=== PATIENT | male | born 1965 | race Caucasian/White ===

== ENCOUNTER 2022-07-18 12:31 | Outpatient (REF) | payer OTHER, SELFPAY ==
--- NOTE | ~2022-07-18 | US_ITS ---
EXAMINATION: US SOFT TISSUE NECK CLINICAL INFORMATION: Posterior neck lump. COMPARISON: None TECHNIQUE: Ultrasound of the right cervical soft tissues is performed with high- frequency crow-scale imaging and color Doppler. FINDINGS: The cutaneous, subcutaneous, muscular and fascial planes are unremarkable. Within the posterior right cervical region, a 4.9 x 1.3 x 3.9 cm heterogeneously hypoechoic, circumscribed mass is seen. This shows no significant associated color Doppler flow. No fluid collection is seen. There is no lymphadenopathy. US/US soft tiss head and/or neck IMPRESSION: A 4.9 cm in maximal diameter mass is seen in the posterior right cervical subcutaneous layer. This has an ultrasound appearance suggesting a possible hematoma; the exact etiology is indeterminate. If of continued clinical concern, consider MRI evaluation.
== END 2022-07-18 12:32 | disposition home or self-care (01) ==
LOC: HO.US 12:31
PROVIDERS: PCP Nurse Practitioner Family; Visit Provider Nurse Practitioner Family
DX: R22.1 Localized swelling, mass and lump, neck (principal)
CPT/HCPCS: 76536

== ENCOUNTER 2022-07-25 07:18 | Outpatient (REF) | payer OTHER, SELFPAY ==
[2022-07-25 11:37] LABS: Hematocrit 46.8 % (42.0-52.0); Hemoglobin 15.3 g/dl (14.0-18.0); Mean Corpuscular HGB Conc 32.7 g/dl (31.0-36.0); Mean Corpuscular Hemoglobin 29.4 pg (27.0-33.0); Mean Platelet Volume 10.8 fL (9.4-12.4); Platelet Count 191 X10*3/uL (160-400); Red Cell Distribution Width 13.4 % (11.0-16.0); White Blood Count 6.1 X10*3/uL (4.8-10.8)
[2022-07-25 12:31] LABS: Alanine Aminotransferase 26 U/L (0-40); Albumin Level 3.8 g/dL (3.5-5.0); Alkaline Phosphatase 66 U/L (39-117); Anion Gap 11 (12-20); Aspartate Amino Transferase 18 U/L (5-37); Bilirubin Total 1.3 mg/dL (0.0-1.0); Blood Urea Nitrogen 17 mg/dL (9-16); Calcium 8.8 mg/dL (8.4-10.2); Carbon Dioxide 26 mmol/L (22-29); Chloride 104 mmol/L (96-108); Cholesterol 190 mg/dL; Estimated Glomerular Filt Rate > 60; Glucose Fasting 120 mg/dL (60-99); HDL Cholesterol 44 mg/dL; LDL Cholesterol Calculated 122 mg/dl; Potassium 4.2 mmol/L (3.3-5.1); Sodium 137 mmol/L (135-145); Total Protein 6.8 g/dL (6.5-8.0); Triglycerides 123 mg/dL
[2022-07-25 12:32] LABS: TSH reflex Free T4 0.55 uIU/mL (0.32-4.0); Vitamin D 25-OH Total 14.2 ng/mL (>30)
== END 2022-07-25 07:19 | disposition home or self-care (01) ==
LOC: HO.WFDLDS 07:18
PROVIDERS: Visit Provider Nurse Practitioner Family
DX: Z00.00 Encounter for general adult medical examination without abnormal findings (principal); R22.1 Localized swelling, mass and lump, neck; Z12.5 Encounter for screening for malignant neoplasm of prostate; E55.9 Vitamin D deficiency, unspecified
CPT/HCPCS: 36415; 80053; 80061; 82306; 84153; 84443; 85027

== ENCOUNTER 2022-09-24 12:07 | Outpatient (REF) | payer OTHER, SELFPAY ==
[2022-09-24 14:22] LABS: Blood Urea Nitrogen 17 mg/dL (9-16); Estimated Glomerular Filt Rate > 60
== END 2022-09-24 12:08 | disposition home or self-care (01) ==
LOC: HO.WFDLDS 12:07
PROVIDERS: Visit Provider Nurse Practitioner Family
DX: R22.1 Localized swelling, mass and lump, neck (principal)
CPT/HCPCS: 36415; 82565; 84520

== ENCOUNTER 2022-09-26 09:18 | Outpatient (REF) | payer OTHER, SELFPAY ==
--- NOTE | ~2022-09-26 | CT_ITS ---
EXAMINATION: CT SOFT TISSUE NECK WITH CONTRAST CLINICAL INFORMATION: Right posterior neck mass COMPARISON: Soft tissue ultrasound 07/18/2019. TECHNIQUE: Following the administration of 100 mL of Omnipaque 300 intravenous contrast, helical imaging was performed in the axial plane with generation of coronal and sagittal reformatted images. This CT examination was performed using dose optimization techniques as appropriate, variously including the following: *Automated exposure control. *Adjustment of mA and/or kV according to patient size (this includes techniques or standardized protocols for targeted exams where dose is matched to indication/reason for exam; i.e. extremities or head). *Use of iterative reconstruction technique. DLP: 437 mGy-cm. FINDINGS: There is a subcutaneous lipoma in the right posterior neck centered at the level of C3 measuring 3.8 x 2.2 x 4.2 cm Nasopharynx/skull base: The fat planes of the skull base and soft tissues of the nasopharynx are unremarkable. Mild maxillary sinus mucosal thickening. The mastoids are clear. The temporomandibular joints are normal. Suprahyoid neck: The oropharynx, oral cavity, and bilateral salivary gland tissues are unremarkable. Small multiloculated gas collection along the right posterolateral trachea at the level of the thoracic inlet likely represents a tracheal diverticulum. Infrahyoid neck: The hypopharynx and larynx are unremarkable. No aerodigestive tract mass. Thyroid: The thyroid gland is normal. Lymph nodes: There is no cervical chain lymphadenopathy. Lung apices: The partially visualized lung apices are clear. Vascular structures: No hemodynamically significant stenosis, dissection, or occlusion. Osseous structures: The osseous structures are intact without suspicious focal lesion. Degenerative disc disease and trace retrolisthesis at C6-C7. Other: The imaged portions of the brain parenchyma are unremarkable. CT/CT soft tissue neck w IV con IMPRESSION: Right upper posterior neck subcutaneous lipoma measuring up to 4.2 cm
[2022-09-26] MEDS: iohexoL 350 MG/ML 100 ML INFUS..BTL IV (10:22)
== END 2022-09-26 09:19 | disposition home or self-care (01) ==
LOC: HO.CT 09:18
PROVIDERS: Visit Provider Nurse Practitioner Family
DX: R22.1 Localized swelling, mass and lump, neck (principal)
CPT/HCPCS: 70491; Q9967

== ENCOUNTER 2022-12-05 12:17 | Outpatient (AMB) | payer OTHER, SELFPAY ==
[2022-12-05 12:22] VITALS: BP 128/70; PULSE 79; RESP 12; TEMP 36.3; O2SAT 97; BMI 32.7
--- NOTE | 2022-12-05 12:22 | MHC.PC.OV ---
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 Patient states pain is in his right hip and hamstring is hurting. Patient is asking for you to refill his naproxen and vitamin D3. Patient states that he is having an operation on his neck due to a lump, and is suppose to go to [facility] to get more information. Patient would also like a new cream for his psoriasis. 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: No Accompanied by: Self / Same As Patient Allergies Seasonal Allergies Allergy (Mild, Verified 12/05/22 12:38) Itchy Eyes Medication List - Last Reconciled 12/05/22 by Neri Rehman CNP cholecalciferol (vitamin D3) 25 mcg PO DAILY 90 days lisinopril-hydrochlorothiazide 20-12.5 mg 1 tab PO BID 30 days naproxen 500 mg PO BID PRN 30 days Tobacco use date assessed: 06/27/22 Dental Screening Dental Screen Date: 12/05/22 Did you have a dental visit in the last 12 months?: No Did you have a dental problem in the last 6 months where you did not have access to dental care?: No Was dental information given to patient?: Patient has dentist HPI HPI Comments History of Present Illness Details 57-year-old male presents for hypertension follow-up He notes he has been taking his lisinopril-hydrochlorothiazide as prescribed He reports persistent right sciatic pain which waxes and wanes. He notes that the pain radiates to his right hamstring. His symptoms have been ongoing for the past 3-4 months. He describes the pain as achy. He states that the pain is mild today. No tingling or numbness. No fall injury or trauma. 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 He reports increased pain while sitting on a seat on the bus with less cushion. He notes that his right knee pain completely resolved with naproxen. Requests a refill of naproxen for his sciatic pain. 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 Christian Crawford, Stormy Ricci, Amaury Sanchez and colleagues, with an educational jennifer from [employer]. Review of Systems Const Details: Const Denies chills, Denies fatigue, Denies fever(s), Denies headache(s) and Denies weakness ENT Denies change in vision, Denies dizziness, Denies headache(s), Denies hearing loss, Denies nasal congestion, Denies sinus pain, Denies sinus pressure and Denies sore throat Resp Denies cough, Denies dyspnea, Denies wheezing and Denies other (shortness of breath) Cardio Denies chest pain, Denies lightheadedness, Denies dyspnea and Denies other (palpitations) Neuro Denies dizziness, Denies headache(s), Denies numbness, Denies tingling and Denies weakness Musc Reports as per HPI Psych Denies anxiety, Denies depression, Denies memory?loss Endo Denies fatigue Aller/Immun Denies wheezing Physical exam (Primary Care) Vital Signs: Last Vital Signs Temp 97.4 F 12/05/22 12:22 Pulse 79 12/05/22 12:22 Resp 12 12/05/22 12:22 BP 128/70 12/05/22 12:22 Pulse Ox 97 12/05/22 12:22 Oxygen Delivery Method Room Air 12/05/22 12:22 BMI result Body Mass Index 32.7 Tobacco/Smoking Status: Tobacco use Status Tobacco use date assessed 06/27/22 12/05/22 12:28 Patient Tobacco Use Status Never used Tobacco 12/05/22 12:28 e-Cigarette/Vaping Use Never Used 12/05/22 12:28 Thrive Assessment: Date of Thrive Assessment Date Thrive assessed 06/27/22 12/05/22 12:28 Const Other: Const General: well developed; No acute distress Nutritional Appearance: well nourished Orientation/consciousness: patient oriented x3 HEENT Head: Yes normocephalic and Yes atraumatic Eyes General: appearance normal, both eyes and all related structures Pupils: Equal, round and reactive pupils present EOM: EOMs intact bilaterally Resp Effort & Inspection: normal respiratory effort Auscultation: clear to auscultation bilaterally Cardio Rate: regular rate Rhythm: regular rhythm Heart sounds: S1 normal heart sound present, S2 normal heart sound present, no gallops, no murmurs and no rubs Bruits: no abdominal aortic bruits and no carotid bruits Back/Spine/Pelvis Back: no CVA tenderness Cervical Spine: cervical ROM normal and No Cervical spine tenderness Thoracic/Lumbar Spine: thoraco-lumbar ROM normal, No pain with thoraco-lumbar ROM, No thoracic spinal tenderness and No lumbar spinal tenderness Extrem General: Yes normal to inspection, No edema and No calf tenderness Negative straight leg raise bilaterally Neuro General: patient oriented x3 and gait normal, no focal neuro deficit Cranial nerves: Yes Equal, round and reactive pupils present Psych Affect: normal affect Assessment and Plan Assessment & Plan (1) Essential hypertension: Code(s): I10 - Essential (primary) hypertension Plan: Blood pressure is controlled, 128/70, within goal of less than 140/90 Continue to take lisinopril-hydrochlorothiazide as prescribed Low-sodium diet encouraged Routine exercise encouraged Encouraged to get pending fasting glucose and vitamin D blood work done before next visit Follow-up in 1 month for complete physical exam Return sooner with symptoms or concerns Verbalized understanding and agreed with treatment plan. (2) Sacroiliac joint pain: Code(s): M53.3 - Sacrococcygeal disorders, not elsewhere classified Plan: He reports persistent right sciatic pain which waxes and wanes. He notes that the pain radiates to his right hamstring. His symptoms have been ongoing for the past 3-4 months. He describes the pain as achy. He states that the pain is mild today. No tingling or numbness. No fall injury or trauma. 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 He reports increased pain while sitting on a seat on the bus with less cushion. Likely inflammation or arthritis Naproxen refilled. Take as prescribed Warm/cold compresses encouraged May purchase a cushion for he seats on the bus Return with worsening or new symptoms Verbalized understanding and agreed with treatment plan. Medications: Refilled naproxen 500 mg PO BID 30 days PRN 60 tabs 1RF pain Coding Level of Care Code Est Pt Level 3 (92713) Diagnoses Essential hypertension I10 Sacroiliac joint pain M53.3 Time Spent (min) 25
== END 2022-12-05 13:00 | disposition home or self-care (01) ==
PROVIDERS: PCP Nurse Practitioner Family; Visit Provider Nurse Practitioner Family
DX: I10 Essential (primary) hypertension (principal); M53.3 Sacrococcygeal disorders, not elsewhere classified
CPT/HCPCS: 99213

== ENCOUNTER 2022-12-09 09:09 | Outpatient (AMB) | payer OTHER, SELFPAY ==
[2022-12-09 09:11] VITALS: BP 146/85; PULSE 79; BMI 33.1
--- NOTE | 2022-12-09 09:11 | A.OFFVIS_ITS ---
Intake Vital Signs 12/09/22 09:11 Height 6 ft 2 in Weight 258 lb BMI 33.1 BP 146/85 H Blood Pressure Location Rt brachial Position Sitting Pulse 79 Intake Visit Reasons: Lipoma Intake Note: Patient referred for lipoma on post neck. Has been present for 10yrs. 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 He has had this many years time. It has markedly increased in size and become more symptomatic as of late. He wished to have it excised. He has no such lesions elsewhere. Chart was reviewed patient evaluated. 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 No cervical or periclavicular adenopathy. Chest Other: Chest breath sounds bilaterally, HS 1 in 2 GI Other: Abdomen corpulent, soft, benign Assessment & Plan Assessment & Plan (1) Lump on neck: Code(s): R22.1 - Localized swelling, mass and lump, neck Plan Risks, benefits, alternatives of posterior neck lipoma excision reviewed with the patient and included but not limited to bleeding, infection, recurrence, numbness, pain, scarring, wound dehiscence, and seroma and the patient wished to proceed. All questions were answered. Arrangements will be made for this. Coding Level of Care Code New Pt Level 4 (17821) Diagnoses Lump on neck R22.1
== END 2022-12-09 09:25 | disposition home or self-care (01) ==
PROVIDERS: PCP Nurse Practitioner Family; Visit Provider Surgery
DX: R22.1 Localized swelling, mass and lump, neck (principal)
CPT/HCPCS: 99204

== ENCOUNTER → 2022-12-09 09:09 | Outpatient (BNVA) | payer OTHER, SELFPAY | PROVIDERS: PCP Nurse Practitioner Family; Visit Provider Surgery ==

== ENCOUNTER 2023-01-02 07:18 | Day surgery (SDC) | payer OTHER, SELFPAY ==
[2022-12-30 14:28] VITALS: BMI 33.1
--- NOTE | 2023-01-01 09:29 | HO.ANESPROP2 ---
Documented by User: Deyanira Muro NP 01/01/23 09:31 HPI - Anesthesia Eval Consult details Narrative: 57yo M for Excision giant post neck Lipoma PMFSH Active Problems Active Problems: All Active Problems (Updated 12/05/22 @ 13:09 by Neri Rehman CNP) Laboratory tests ordered as part of a complete physical exam (CPE) (Acute) Lump on neck (Acute) Psoriasis (Acute) Essential hypertension (Acute) Encounter for screening colonoscopy (Acute) Vaccine counseling (Acute) Right knee pain (Acute) Vitamin D deficiency (Acute) Elevated fasting glucose (Acute) Sacroiliac joint pain (Acute) Past Medical History Medical History (Updated 01/02/23 @ 08:12 by Bekah Damon RN) No pertinent past medical history Sleep apnea Surgical History Surgical History (Updated 12/30/22 @ 14:27 by Jennifer Stevens RN) H/O right wrist surgery Social History Social History Housing: House Patient Tobacco Use Status: Never used Tobacco e-Cigarette/Vaping Use: Never Used Use of substances other than those prescribed or required for medical reasons: No Are you DNR?: No Advance Directives: No Advance Directives Information Provided: Yes service: No Current occupational status: employed 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) Cognitive needs: No Hearing needs: No Vision needs: No Meds Allergies Allergy/AdvReac Type Severity Reaction Status Date / Time Seasonal Allergies Allergy Mild Itchy Eyes Verified 12/09/22 09:16 Home Medications Medication Instructions Recorded Confirmed Last Taken Type triamcinolone acetonide 0.1 % appl topical BID 12/05/22 Unknown History topical cream Exam Exam Date and Time: January 01, 2023 0929 Height,Weight and Vital Signs: Height 6 ft 2 in Weight 117.027 kg Pertinent Lab Results Pertinent Lab Results: Laboratory Tests 07/25/22 07/25/22 09/24/22 07:25 07:25 11:40 WBC 6.1 Hgb 15.3 Hct 46.8 Plt Count 191 Sodium 137 Potassium 4.2 Chloride 104 Carbon Dioxide 26 BUN 17 H Creatinine 0.88 Assessment and Plan Assessment Anesthesia Assessment: Chart Reviewed Documented by User: Josue Wilson MD 01/02/23 10:07 [facility] Past Medical History Medical History (Updated 01/02/23 @ 08:12 by Bekah Damon, [place]ET[place]) No pertinent past medical history Sleep apnea Family History Family history of problems with anesthesia: No Surgical History Surgical History (Updated 12/30/22 @ 14:27 by Jennifer Stevens RN) H/O right wrist surgery History of Problems with Anesthesia: No Social History Social History Housing: House Patient Tobacco Use Status: Never used Tobacco e-Cigarette/Vaping Use: Never Used Use of substances other than those prescribed or required for medical reasons: No Are you DNR?: No Advance Directives: No Advance Directives Information Provided: Yes service: No Current occupational status: employed 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) Cognitive needs: No Hearing needs: No Vision needs: No Meds Allergies Allergy/AdvReac Type Severity Reaction Status Date / Time Seasonal Allergies Allergy Mild Itchy Eyes Verified 12/09/22 09:16 Home Medications Medication Instructions Recorded Confirmed Last Taken Type triamcinolone acetonide 0.1 % appl topical BID 12/05/22 Unknown History topical cream Exam Airway Mallampati Class: III TM Dist: >3cm Neck ROM: Full Assessment and Plan Assessment Anesthesia Assessment: Anesthesia Plan Discussed Final Anesthetic Review Family History of Problems with Anesthesia: No History of Problems with Anesthesia: No NPO: Yes ASA Class: III Final Preanesthetic Review: No Changes in Pt Med Stat, Meds/Allgs Chart Reviewed, Consent Obtained/Reviewed and Anes Risks/Benef Reviewed Procedure Risk: Low Anesthetic Plan Anesthetic Plan: GA Disposition: Standard PACU
--- NOTE | 2023-01-01 10:23 | MHC.SHP ---
Pre-Procedural Eval Section A Date of Service: 01/01/23 The patient is an INPATIENT: No Changes since office visit: No Cold of Flu in the past 2 weeks, No New Medical Problems, No Changes in Medication and No Patient answered all questions The History & Physical has been completed within 30 days and I have reviewed it.: Yes Section B Chief Complaint: Localized swelling, mass and lump, neck Allergies: Allergies Allergy/AdvReac Type Severity Reaction Status Date / Time Seasonal Allergies Allergy Mild Itchy Eyes Verified 12/09/22 09:16 Plan I have reviewed the history and physical and performed a pertinent physical examination on my patient. No changes have occurred unless specified. Time Spent With Patient Time: Total time managing care of this patient today ____ minutes.
[2023-01-02] VITALS (8 sets, daily range): BP systolic 134–172; BP diastolic 90–109; PULSE 61–75; RESP 16; TEMP 36.1; O2SAT 95–100
[2023-01-02] MEDS: Lactated Ringers 1,000 ML 100 ML IVCONT (08:40)
--- NOTE | 2023-01-02 10:49 | W.PM.OPN ---
Operative Note Operative Note Date of Service: 01/02/23 Narrative: Preoperative diagnosis: [] Large posterior neck lipoma Postop diagnosis: [] Same Procedure [] excision large right posterior neck lipoma Surgeon: [] Luis Manuel Bindery Machine Setter/Set Up Operator: [] Type of Anesthesia: [] General Indication for surgery: [] Final specimen measured approximately 4 x 4 cm consistent with a large lipoma deeply situated on the posterior neck muscle. Findings: [] Patient brought to the operating room, placed on operative table in supine position, after adequate level of general anesthesia was induced, patient placed in left lateral decubitus position. Posterior neck was prepped and draped in usual sterile fashion. Using a transverse incision over the mass in question, this carried down through skin, subcutaneous tissue, were large lipoma was encountered and circumferentially dissected out using Bovie. This was shaved off the underlying muscle and sent to pathology. Specimen size was as noted above. Wounds irrigated, and secured hemostasis. The wound Was closed in following manner; subcutaneous tissue was reapproximated using up to 3-0 Vicryl sutures. Skin was closed using interrupted inverted dermal 3-0 Vicryl sutures followed by Steri-Strips and sterile dressings. Wound was infiltrated 0.5% Marcaine/1% lidocaine at completion. Sponge, needle, and instrument counts were reported to be correct. Patient tolerated the procedure well and emerged anesthesia stable condition. EBL minimal
== END 2023-01-02 12:50 | disposition home or self-care (01) ==
PROVIDERS: PCP Nurse Practitioner Family; Visit Provider Surgery
PROC: (CPT 21552; principal; 2023-01-02 09:50)
DX: D17.0 Benign lipomatous neoplasm of skin and subcutaneous tissue of head, face and neck (principal); J30.2 Other seasonal allergic rhinitis; I10 Essential (primary) hypertension; R73.01 Impaired fasting glucose; Z79.899 Other long term (current) drug therapy
CPT/HCPCS: 21552; 88304; J0690; J1200; J2250; J2405; J2795; J3010

== ENCOUNTER → 2023-01-02 07:18 | Outpatient (BNV) | payer OTHER, SELFPAY | PROVIDERS: PCP Nurse Practitioner Family; Visit Provider Surgery | DX: D17.0 Benign lipomatous neoplasm of skin and subcutaneous tissue of head, face and neck (principal) | CPT/HCPCS: 21552 ==

== ENCOUNTER 2023-01-09 11:00 | Outpatient (AMB) | payer OTHER, SELFPAY ==
[2023-01-09 11:05] VITALS: BP 150/95; PULSE 93
--- NOTE | 2023-01-09 11:05 | A.OFFVIS_ITS ---
Intake Vital Signs 01/09/23 11:05 Weight 251 lb BP 150/95 H Blood Pressure Location Rt brachial Position Sitting Pulse 93 Intake Visit Reasons: S/P excision giant posterior neck lipoma Intake Note: Patient here s/p exc on post neck. Reports incision healing well. Denies pain, oozing or tenderness. C/o itch along scar but stated it may be related to psoriasis. Head Soft Sugar Operator Required: No Accompanied by: Self / Same As Patient Allergies Seasonal Allergies Allergy (Mild, Verified 01/09/23 11:07) Itchy Eyes HPI HPI Comments History of Present Illness Details Patient presents for follow-up. He has no wound issues or complaints. Pathology is benign. 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 Assessment & Plan Assessment & Plan (1) Lump on neck: Code(s): R22.1 - Localized swelling, mass and lump, neck Plan Patient has been given local instructions, and will follow-up p.r.n. Coding Level of Care Code Global (33176) Diagnoses Lump on neck R22.1
== END 2023-01-09 11:25 | disposition home or self-care (01) ==
PROVIDERS: PCP Nurse Practitioner Family; Visit Provider Surgery
DX: R22.1 Localized swelling, mass and lump, neck (principal)
CPT/HCPCS: 99024

== ENCOUNTER → 2023-01-09 11:00 | Outpatient (BNVA) | payer OTHER, SELFPAY | PROVIDERS: PCP Nurse Practitioner Family; Visit Provider Surgery ==

== ENCOUNTER 2023-05-06 10:39 | Outpatient (AMB) | payer OTHER, SELFPAY ==
--- NOTE | 2023-05-06 10:44 | MHC.PC.OV ---
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 [facility]/ [facility], [place] Quality Control Auditor Required: No Accompanied by: Self / Same As Patient Allergies Seasonal Allergies Allergy (Mild, Verified 05/06/23 10:56) Itchy Eyes Medication List - Last Reconciled 05/06/23 by Nba Moe PA-C cholecalciferol (vitamin D3) 25 mcg PO DAILY 90 days lisinopril-hydrochlorothiazide 20-12.5 mg 1 tab PO BID 30 days naproxen 500 mg PO BID PRN 30 days triamcinolone acetonide 0.1% appl topical BID Tobacco use date assessed: 06/27/22 Dental Screening Dental Screen Date: 05/06/23 Did you have a dental visit in the last 12 months?: No Did you have a dental problem in the last 6 months where you did not have access to dental care?: No Was dental information given to patient?: Yes HPI 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 Patient has a past medical history significant for hypertension, vitamin-D deficiency and occasional lower lumbar spine pain. 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 Recently had been treated for pneumonia with antibiotics. Will supply patient with pneumonia vaccine .. Hypertension: His blood pressure has been well controlled on current dose of lisinopril hydrochlorothiazide. .. Sciatica: He occasionally does have sciatica that radiates down his right lower extremity. 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 Does use naproxen which has been helpful in reducing his pain. He would like a stronger medication to use as needed for his pain. We did discuss the possibility of trying physical therapy though would like to hold off for now due to his busy work schedule. .. Obesity: He does understand his BMI is over 30 Vaccines: Up-to-date with COVID vaccine, considering flu vaccine, considering shingles vaccine, will consider tetanus at next visit. 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 1. Little interest or pleasure in doing things: not at all 2. Feeling down, depressed, or hopeless: not at all 3. Trouble falling or staying asleep, or sleeping too much: not at all 4. Feeling tired or having little energy: not at all 5. Poor appetite or overeating: not at all 6. Feeling bad about yourself - or that you are a failure or have let yourself or your family down: not at all 7. Trouble concentrating on things, such as reading the newspaper or watching television: not at all 8. Moving or speaking so slowly that other people could have noticed. Or the opposite - being so fidgety or restless that you have been moving around a lot more than usual: not at all 9. Thoughts that you would be better off or of hurting yourself in some way: not at all Total score: 0 Depression Screening Interpretation: Negative Depression Screening Done: Yes [id number] - PHQ-9 Billing: Yes Source: Developed by Drs. Christian Crawford, Stormy Ricci, Amaury Sanchez and colleagues, with an educational jennifer from [employer]. Thrive Questionnaire Date Thrive assessed: 05/06/23 I am a: Patient What is your living situation today?: I have a steady place to live Within the past 12 months, did the food you bought not last and you didn't have the money to get more?: Never true Within the past 12 months, did you worry whether your food would run out before you got money to buy more?: Never true Do you have trouble paying for medicines?: No Do you have trouble getting transportation to medical appointments?: No Do you have trouble paying your heating and electricity bill?: No Do you have trouble taking care of your child, family member or friend?: No Do you have trouble with day-to-day activities such as bathing, preparing meals, shopping, managing finances, etc.?: No Are you currently unemployed and looking for a job?: No Are you interested in more education?: No Please select the resources that you would like help with: None Currently or been in a relationship where the following occur: no concerns reported AUDIT C Alcohol Use Questionnaire (AUDIT-C) 1. How often do you have a drink containing alcohol?: Monthly or less 2. How many drinks containing alcohol do you have on a typical day when you are drinking?: 1 or 2 3. How often do you have six or more drinks on one occasion?: Never Total Score: 1 STEPHEN-7 AMB Questionnaire STEPHEN-7 Date STEPHEN - 7 assessed: 05/06/23 Feeling nervous, anxious, or on edge: 0 = Not at all Not being able to stop or control worryin = Not at all Worrying too much about different things: 0 = Not at all Trouble relaxin = Not at all Being so restless that it is hard to sit still: 0 = Not at all Becoming easily annoyed or irritable: 0 = Not at all Feeling afraid as if something awful might happen: 0 = Not at all Total STEPHEN-7 score (0-4 normal; 5-9 mild; 10-14 moderate; 15-21 severe): 0 Source: Developed by Drs. Christian Crawford, Stormy Ricci, Amaury Sanchez and colleagues, with an educational jennifer from [employer]. STEPHEN-7 Assessment Billing STEPHEN-7 Assessment Tool: STEPHEN-7 Assessment 04698 Review of Systems Const Denies headache(s) Eyes Denies loss of vision ENT Denies vertigo, Denies dizziness, Denies headache(s) and Denies sore throat Card Denies chest pain, Denies leg edema and Denies lightheadedness Resp Denies cough, Denies hemoptysis and Denies wheezing GI Denies abdominal pain, Denies melena, Denies constipation, Denies diarrhea and Denies vomiting Denies dysuria, Denies urinary frequency and Denies urinary urgency Musc Denies arthralgias, Denies joint swelling, Denies numbness and Denies tingling Neuro Denies Abnormal speech present, Denies behavioral changes, Denies vertigo, Denies dizziness, Denies headache(s), Denies loss of vision, Denies memory loss, Denies numbness and Denies tingling Psych Denies anxiety, Denies behavioral changes, Denies depression, Denies memory loss and Denies panic attacks Amor/Lymph Denies easy bleeding and Denies easy bruising Aller/Immun Denies wheezing Physical exam (Primary Care) Vital Signs: Last Vital Signs Pulse 82 05/06/23 10:46 BP 126/80 05/06/23 10:46 BMI result Body Mass Index 32.8 BMI Assessment/Plan discussion: High Tobacco/Smoking Status: Tobacco use Status Tobacco use date assessed 06/27/22 05/06/23 10:48 Patient Tobacco Use Status Never used Tobacco 05/06/23 10:48 e-Cigarette/Vaping Use Never Used 05/06/23 10:48 PHQ-9: PHQ-9 Score PHQ-9: Total score 0 05/06/23 11:19 Depression Screening Interpretation: Negative Thrive Assessment: Date of Thrive Assessment Date Thrive assessed 05/06/23 05/06/23 10:52 Currently or been in a relationship where the following occur: no concerns reported Const Other: OBESE General: healthy appearing, no acute distress, alert and awake Nutritional Appearance: well nourished Orientation/consciousness: oriented to person, oriented to place and oriented to time HENVT Ears: TM's normal bilaterally General nose exam: Normal nasal mucous membranes and turbinates present Eyes Conjunctivae: conjunctivae normal Sclerae: sclerae normal Pupils: Equal, round and reactive pupils present Neck Neck: Yes no lymphadenopathy and Yes no JVD Thyroid: Thyroid normal Carotids: no bruits Resp Effort & Inspection: normal respiratory effort and not tachypneic Auscultation: no crackles, no rales, no rhonchi and no wheezes Cardio Rate: regular rate Rhythm: regular rhythm Heart sounds: no murmurs and normal S1 and S2 GI Palpation (GI): Soft to palpation, nontender, no hepatomegaly and no splenomegaly Auscultation: normal bowel sounds Skin General skin exam: no rashes or lesions noted and dry skin Neuro General: oriented to person, oriented to place and oriented to time Cranial nerves: Yes Equal, round and reactive pupils present Speech: No Abnormal speech present Gait exam (Neuro): Normal gait present Motor exam (neuro): no tremor noted Extrem Right upper extremity: full ROM Left upper extremity: full ROM Right lower extremity: full ROM; no edema Left lower extremity: full ROM; no edema Psych Mental Status: mental status grossly normal Speech and movement: Normal speech and movement present Affect: normal affect Attitude: cooperative Thought process: Normal thought process present Office Procedures Flu Questionnaire Does the patient have a severe egg allergy?: No Does the patient have severe life threatening allergies?: No Does the patient have a fever or illness today?: No Has the patient ever had Guillain-Omega Syndrome?: No Has the patient ever had any past reaction to a flu shot?: No Immunizations flu vacc [id number] 6mos up(PF) 60 mcg(15 mcgx4)/0.5 mL IM syringe Performing Provider: Nba Moe PA-C Performing Location: [facility] Administered by: JOSE Travis on 05/06/23 11:20 Dose Route Admin Location Dispensed Lot Number Expiration Date [facility] Kitchen Mechanic 0.5 mL IM Right Deltoid 0.5 mL [id number] 11/23/23 55220-547-22 [employer] VIS Given Date VIS Provided VIS Publication Date 05/06/23 Single Vaccine 20 Eligibility Eligibility Date Funding Source Not VFC Eligible 05/06/23 Private pneumoc 20-brooks conj-dip cr(PF) 0.5 mL IM syringe Performing Provider: Nba Moe PA-C Performing Location: [facility] Administered by: JOSE Travis on 05/06/23 11:20 Dose Route Admin Location Dispensed Lot Number Expiration Date [place] Kitchen Mechanic 0.5 mL IM Left Deltoid 0.5 mL [id number] 11/24/23 9155-0912-80 [email or web address] VIS Given Date VIS Provided VIS Publication Date 05/06/23 Single Vaccine 21 Eligibility Eligibility Date Funding Source Not VFC Eligible 05/06/23 Private Assessment and Plan Assessment & Plan (1) Essential hypertension: Code(s): I10 - Essential (primary) hypertension Plan: Patient's blood pressure well controlled with current dose lisinopril hydrochlorothiazide. Goal blood pressures to remain below 140/90 (2) Obese: Code(s): E66.9 - Obesity, unspecified Qualifiers: Body mass index: BMI 32.0-32.9 Obesity classification: adult class 1 (BMI 30 - 34.9) Obesity type: due to excess calories Serious obesity comorbidity presence: without serious comorbidity Qualified Code(s): E66.09 - Other obesity due to excess calories; Z68.32 - Body mass index [BMI] 32.0-32.9, adult Plan: Patient does understand his BMI is over 30 will work on being more physically active and adapting to better eating habits to reduce his weight. (3) Psoriasis: Code(s): L40.9 - Psoriasis, unspecified Plan: Patient does have chronic psoriasis to which she uses moisturizers and topical steroids for. (4) Colon cancer screening: Code(s): Z12.11 - Encounter for screening for malignant neoplasm of colon Plan: Patient is in need of colonoscopy . Will refer to [facility] Orders: Orders Vitamin D 25-OH Total Today E55.9 - Vitamin D deficiency, unspecified Comprehensive [place]. Panel Fast Today I10 - Essential (primary) hypertension Prostate Specific Antigen Scr Today M53.3 - Sacrococcygeal disorders, not elsewhere classified, Z12.5 - Encounter for screening for malignant neoplasm of prostate Influenza [id number] Immunization Today Z23 - Encounter for immunization Microalbumin, Random (w Creat) Today I10 - Essential (primary) hypertension Hemoglobin A1c Today R73.01 - Impaired fasting glucose Pneumococcal 20 Immunization Today Z23 - Encounter for immunization Referrals Gastroenterology Referral Z12.11 - Encounter for screening for malignant neoplasm of colon Medications: New cyclobenzaprine 5 mg PO BEDTIME 15 days PRN 15 tabs 0RF muscle spasm M53.3 - Sacrococcygeal disorders, not elsewhere classified Changed From triamcinolone acetonide 0.1% topical BID L40.9 - Psoriasis, unspecified To triamcinolone acetonide 0.1% 1 appl topical BID 30 days 80 grams 3RF L40.9 - Psoriasis, unspecified Refilled cholecalciferol (vitamin D3) 25 mcg PO DAILY 90 days 90 tabs 4RF naproxen 500 mg PO BID 30 days PRN 60 tabs 1RF pain naproxen 500 mg PO BID 30 days PRN 60 tabs 1RF pain M53.3 - Sacrococcygeal disorders, not elsewhere classified lisinopril-hydrochlorothiazide 20-12.5 mg 1 tab PO BID 30 days 60 tabs 4RF Coding Level of Care Code Est Pt Level 4 (74207) Diagnoses Essential hypertension I10 Class 1 obesity due to excess calories without serious comorbidity with body mass index (BMI) of 32.0 to 32.9 in adult E66.09; Z68.32 Body mass index: BMI 32.0-32.9 Obesity classification: adult class 1 (BMI 30 - 34.9) Obesity type: due to excess calories Serious obesity comorbidity presence: without serious comorbidity Psoriasis L40.9 Colon cancer screening Z12.11 Additional Codes STEPHEN-7 Assessment Billing - STEPHEN-7 Assessment Tool: STEPHEN-7 Assessment [id number] ([id number])
[2023-05-06 10:46] VITALS: BP 126/80; PULSE 82; BMI 32.8
== END 2023-05-06 11:17 | disposition home or self-care (01) ==
PROVIDERS: PCP Nurse Practitioner Family; Visit Provider Physician Assistant
DX: I10 Essential (primary) hypertension (principal); E66.09 Other obesity due to excess calories; Z68.32 Body mass index [BMI] 32.0-32.9, adult; L40.9 Psoriasis, unspecified; Z12.11 Encounter for screening for malignant neoplasm of colon; Z23 Encounter for immunization
CPT/HCPCS: 90471; 90472; 90677; 90686; 99214

== ENCOUNTER 2023-07-26 10:37 | Outpatient (REF) | payer OTHER, SELFPAY ==
[2023-07-26 11:59] LABS: Estimated Average Glucose 154 mg/dL
[2023-07-26 12:01] LABS: Creatinine Urine 165.74 mg/dL; Microalbum/Creatinine Ratio Ur 3.6 ug/mg cr (<30)
[2023-07-26 12:10] LABS: Alanine Aminotransferase 28 U/L (0-40); Albumin Level 3.8 g/dL (3.5-5.0); Alkaline Phosphatase 65 U/L (39-117); Anion Gap 11 (12-20); Aspartate Amino Transferase 20 U/L (5-37); Bilirubin Total 0.8 mg/dL (0.0-1.0); Blood Urea Nitrogen 18 mg/dL (9-16); Calcium 9.3 mg/dL (8.4-10.2); Carbon Dioxide 28 mmol/L (22-29); Chloride 105 mmol/L (96-108); Estimated Glomerular Filt Rate > 60; Glucose Fasting 134 mg/dL (60-99); Potassium 4.4 mmol/L (3.3-5.1); Sodium 140 mmol/L (135-145); Total Protein 7.1 g/dL (6.5-8.0)
[2023-07-26 12:21] LABS: Vitamin D 25-OH Total 30.6 ng/mL (>30)
== END 2023-07-26 10:38 | disposition home or self-care (01) ==
LOC: HO.LAB 10:37
PROVIDERS: PCP Physician Assistant; Visit Provider Physician Assistant
DX: Z12.5 Encounter for screening for malignant neoplasm of prostate (principal); E55.9 Vitamin D deficiency, unspecified; I10 Essential (primary) hypertension; M53.3 Sacrococcygeal disorders, not elsewhere classified; R73.01 Impaired fasting glucose
CPT/HCPCS: 36415; 80053; 82043; 82306; 82570; 83036; 84153

== ENCOUNTER 2023-07-29 08:57 | Outpatient (AMB) | payer OTHER, SELFPAY ==
[2023-07-29 09:03] VITALS: BP 122/80; PULSE 85; O2SAT 98; BMI 33.6
--- NOTE | 2023-07-29 09:03 | A.OFFPC_ITS ---
Vital Signs 07/29/23 09:03 Height 6 ft 2 in Weight 262 lb BMI 33.6 BP 122/80 Blood Pressure Location Lt brachial Position Sitting Pulse 85 Pulse Source Pulse Oximeter Pulse Oximetry (%) 98 Oxygen Delivery Method Room Air Intake Visit Reasons: pe Manager Therapy Required: No Wire Walker: Not Required per policy Accompanied by: Self / Same As Patient Allergies Seasonal Allergies Allergy (Mild, Verified 07/29/23 09:10) Itchy Eyes Medication List - Last Reconciled 07/29/23 by Nba Moe PA-C cholecalciferol (vitamin D3) 25 mcg PO DAILY 90 days cyclobenzaprine 5 mg PO BEDTIME PRN 15 days lisinopril-hydrochlorothiazide 20-12.5 mg 1 tab PO BID 30 days naproxen 500 mg PO BID PRN 30 days triamcinolone acetonide 0.1% 1 appl topical BID 30 days Tobacco use date assessed: 07/29/23 Dental Screening Dental Screen Date: 07/29/23 Did you have a dental visit in the last 12 months?: No Did you have a dental problem in the last 6 months where you did not have access to dental care?: No Was dental information given to patient?: Patient has dentist HPI pe HPI Details Patient is a 57-year-old male here today for annual physical. Patient has a past medical history significant for hypertension, vitamin-D deficiency and occasional lower lumbar spine pain. 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 .. New onset type 2 diabetes: Most recent A1c is 7.0. He does admit to dietary indiscretion over the winter. Has gained a few lb since last office visit. PLAN: Offered anti-hyperglycemic medication though he declines at this time. Will work extensively on diabetic diet and being more physically active to control his type 2 diabetes. .. .. Hypertension: His blood pressure has been well controlled on current dose of lisinopril hydrochlorothiazide. .. Sciatica: He occasionally does have sciatica that radiates down his right lower extremity. 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 Does use naproxen which has been helpful in reducing his pain. He would like a stronger medication to use as needed for his pain. .. Obesity: He does understand his BMI is over 30, unfortunately gained weight since last office visits Vaccines: Up-to-date with COVID vaccine, considering flu vaccine, considering shingles vaccine, needs tetanus. Colon cancer screening: Has upcoming appt with GI Laboratory Tests 07/25/22 07/26/23 07:25 10:46 Creatinine 0.98 Fasting Glucose 134 H Hemoglobin A1c % 7.0 H LDL Cholesterol, C alc 122 PSA Screen 1.00 25-OH Vitamin D To trish 30.6 L PFSH Medical History (Updated 07/29/23 @ 09:34 by Nba Moe PA-C) Sleep apnea No pertinent past medical history Surgical History (Updated 07/29/23 @ 09:34 by Nba Moe PA-C) Lump on neck H/O right wrist surgery Social History (Updated 07/29/23 @ 09:16 by Nba Moe PA-C) Housing: House Alcohol intake: current Alcohol intake frequency: holidays/special occasions only Alcohol type: wine Patient Tobacco Use Status: Never used Tobacco e-Cigarette/Vaping Use: Never Used service: No Current occupational status: employed 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 1. Little interest or pleasure in doing things: not at all 2. Feeling down, depressed, or hopeless: not at all 3. Trouble falling or staying asleep, or sleeping too much: not at all 4. Feeling tired or having little energy: not at all 5. Poor appetite or overeating: not at all 6. Feeling bad about yourself - or that you are a failure or have let yourself or your family down: not at all 7. Trouble concentrating on things, such as reading the newspaper or watching television: not at all 8. Moving or speaking so slowly that other people could have noticed. Or the opposite - being so fidgety or restless that you have been moving around a lot more than usual: not at all 9. Thoughts that you would be better off or of hurting yourself in some way: not at all Total score: 0 Depression Screening Interpretation: Negative Depression Screening Done: Yes 32361 - PHQ-9 Billing: Yes Source: Developed by Drs. Christian LStormy Landrum Kurt Kroenke and colleagues, with an educational jennifer from [employer]. Thrive Questionnaire Date Thrive assessed: 07/29/23 I am a: Patient What is your living situation today?: I have a steady place to live Within the past 12 months, did the food you bought not last and you didn't have the money to get more?: Never true Within the past 12 months, did you worry whether your food would run out before you got money to buy more?: Never true Do you have trouble paying for medicines?: No Do you have trouble getting transportation to medical appointments?: No Do you have trouble paying your heating and electricity bill?: No Do you have trouble taking care of your child, family member or friend?: No Do you have trouble with day-to-day activities such as bathing, preparing meals, shopping, managing finances, etc.?: No Are you currently unemployed and looking for a job?: No Are you interested in more education?: No Please select the resources that you would like help with: None THRIVE Score: 0 AUDIT C Alcohol Use Questionnaire (AUDIT-C) 1. How often do you have a drink containing alcohol?: Monthly or less 2. How many drinks containing alcohol do you have on a typical day when you are drinking?: 1 or 2 3. How often do you have six or more drinks on one occasion?: Never Total Score: 1 STEPHEN-7 AMB Questionnaire STEPHEN-7 Date STEPHEN - 7 assessed: 07/29/23 Feeling nervous, anxious, or on edge: 0 = Not at all Not being able to stop or control worryin = Not at all Worrying too much about different things: 0 = Not at all Trouble relaxin = Not at all Being so restless that it is hard to sit still: 0 = Not at all Becoming easily annoyed or irritable: 0 = Not at all Feeling afraid as if something awful might happen: 0 = Not at all Total STEPHEN-7 score (0-4 normal; 5-9 mild; 10-14 moderate; 15-21 severe): 0 Source: Developed by Stormy Gilbert Kurt Kroenke and colleagues, with an educational jennifer from [employer]. STEPHEN-7 Assessment Billing STEPHEN-7 Assessment Tool: STEPHEN-7 Assessment 49379 Review of Systems Const Denies body aches, Denies chills, Denies excessive sweating, Denies fatigue, Denies fever(s) and Denies headache(s) Eyes Denies blurry vision ENT Denies dysphagia, Denies vertigo, Denies dizziness, Denies headache(s), Denies hearing loss and Denies tinnitus Card Denies chest pain, Denies chest pain with activity, Denies syncope, Denies irregular heart rhythm and Denies dyspnea Resp Denies chest congestion, Denies cough, Denies hemoptysis, Denies dyspnea and Denies wheezing GI Denies abdominal pain, Denies melena, Denies hematochezia, Denies coffee ground emesis, Denies dysphagia, Denies diarrhea, Denies nausea and Denies vomiting Denies difficulty urinating, Denies dysuria, Denies urinary frequency, Denies urinary hesitancy and Denies urinary urgency Musc Denies arthralgias, Denies limited range of motion, Denies muscle cramps and Denies muscle weakness Skin/Breast Denies rash and Denies skin ulcer Neuro Denies Abnormal speech present, Denies confusion, Denies vertigo, Denies dizziness, Denies syncope, Denies headache(s), Denies memory loss and Denies seizure-like activity Psych Denies anxiety, Denies confusion, Denies depression, Denies memory loss, Denies panic attacks and Denies paranoia Endo Denies excessive sweating, Denies fatigue, Denies flushing, Denies polydipsia and Denies polyuria Aller/Immun Denies wheezing Physical exam (Primary Care) Vital Signs: Last Vital Signs Pulse 85 07/29/23 09:03 BP 122/80 07/29/23 09:03 Pulse Ox 98 07/29/23 09:03 Oxygen Delivery Method Room Air 07/29/23 09:03 BMI result Body Mass Index 33.6 BMI Assessment/Plan discussion: High Tobacco/Smoking Status: Tobacco use Status Tobacco use date assessed 07/29/23 07/29/23 09:04 Patient Tobacco Use Status Never used Tobacco 07/29/23 09:16 e-Cigarette/Vaping Use Never Used 07/29/23 09:16 PHQ-9: PHQ-9 Score PHQ-9: Total score 0 07/29/23 09:13 Depression Screening Interpretation: Negative Thrive Assessment: Date of Thrive Assessment Date Thrive assessed 07/29/23 07/29/23 09:04 Const Other: Obese General: cooperative, comfortable, no acute distress, alert and awake; No confusion Orientation/consciousness: oriented to person, oriented to place, patient oriented x3 and No confusion HENMT Head: Yes normocephalic Ears: external ears normal and TM's normal bilaterally Face and sinus: No sinus tenderness Mouth: Normal oral and palatal mucosa present and tongue normal Teeth and gingiva: dentition normal and gingiva normal Throat: Yes posterior oropharynx normal, Yes tonsils normal and Yes uvula midline Eyes Conjunctivae: conjunctivae normal Sclerae: sclerae normal Pupils: Equal, round and reactive pupils present EOM: EOMs intact bilaterally Direct Ophthalmoscopy: No no photophobia Neck Neck: Yes no lymphadenopathy, No tender and Yes no JVD Thyroid: Thyroid normal Carotids: no bruits Chest Chest palpation & inspection: no tenderness Resp Effort & Inspection: normal respiratory effort, no audible wheezes, not labored and no stridor Auscultation: no crackles, no rales, no rhonchi and no wheezes Cardio Jugular venous distension: no JVD Rate: regular rate, not bradycardic and not tachycardic Rhythm: regular rhythm Bruits: no carotid bruits Peripheral pulses: Peripheral pulses 2+ throughout GI Inspection: Yes normal to inspection, No abdominal wall ecchymosis and No visible herniation Palpation (GI): Soft to palpation, nontender, no guarding, not rigid and No hepatosplenomegaly present Auscultation: normoactive bowel sounds General: Yes no CVA tenderness Back/Spine/Pelvis Back: no CVA tenderness and No back tenderness Cervical Spine: cervical ROM normal Thoracic/Lumbar Spine: thoracic and lumbar spine normal to inspection, straight leg raise negative bilaterally, No thoraco-lumbar ROM limited and No lumbar spi nal tenderness Skin Lesions: no lesions Rashes: no rashes Wounds: no wounds Neuro General: oriented to person, oriented to place, patient oriented x3, CN's II-XI intact bilaterally and No confusion Cranial nerves: Yes Equal, round and reactive pupils present and Yes Normal accommodation reflex present Cognition (Neuro): normal cognition Speech: No Abnormal speech present Gait exam (Neuro): Normal gait present Motor exam (neuro): 5/5 motor strength present throughout Extrem Right upper extremity: full ROM; no cyanosis Left upper extremity: full ROM; no cyanosis Right lower extremity: no edema Left lower extremity: no edema Psych Appearance: grossly normal Mental Status: mental status grossly normal Affect: normal affect Attitude: cooperative Thought process: Normal thought process present Immunizations Boostrix Tdap 2.5 Lf unit-8 mcg-5 Lf/0.5 mL intramuscular syringe Performing Provider: Nba Moe PA-C [facility] [place] Administered by: JOSE Travis on 07/29/23 09:30 Dose Route Admin Location Dispensed Lot Number Expiration Date NDC Floors Buffer 0.5 mL IM Left Deltoid 0.5 mL [id number] 09/18/25 [id number] abcdexperts VIS Given Date VIS Provided VIS Publication Date 07/29/23 Single Vaccine 20 Eligibility Eligibility Date Funding Source Not [facility] Eligible 07/29/23 Private Assessment and Plan Assessment & Plan (1) Annual physical exam: Code(s): Z00.00 - Encounter for general adult medical examination without abnormal findings (2) Essential hypertension: Code(s): I10 - Essential (primary) hypertension Plan: Patient's blood pressure well controlled with current dose lisinopril hydrochlorothiazide. Goal blood pressures to remain below 140/90 (3) Obese: Code(s): E66.9 - Obesity, unspecified Qualifiers: Obesity type: due to excess calories Obesity classification: adult class 1 (BMI 30 - 34.9) Serious obesity comorbidity presence: without serious comorbidity Body mass index: BMI 32.0-32.9 Qualified Code(s): E66.09 - Other obesity due to excess calories; Z68.32 - Body mass index [BMI] 32.0-32.9, adult Plan: Patient does understand his BMI is over 30 will work on being more physically active and adapting to better eating habits to reduce his weight. (4) Psoriasis: Code(s): L40.9 - Psoriasis, unspecified Plan: Patient does have chronic psoriasis to which she uses moisturizers and topical steroids for. (5) DMII (diabetes mellitus, type 2): Code(s): E11.9 - Type 2 diabetes mellitus without complications Qualifiers: Diabetes mellitus terminal make up operator insulin use: without terminal make up operator use Diabetes mellitus complication status: with hyperglycemia Qualified Code(s): E11.65 - Type 2 diabetes mellitus with hyperglycemia Plan: Patient has new onset type 2 diabetes. Most recent A1c is 7.0. He is apprehensive on starting medication would like to work extensively on his diabetic diet to get his A1c down. Will follow-up in 4 months and if A1c above 6.5 will consider starting metformin. (6) Erectile dysfunction: Code(s): N52.9 - Male erectile dysfunction, unspecified Qualifiers: Erectile dysfunction type: unspecified Qualified Code(s): N52.9 - Male erectile dysfunction, unspecified Plan: Having difficulty with 6 dry, he is interested in trying Cialis before sexual activity. Orders: Orders Comprehensive [place]. Panel Fast Today I10 - Essential (primary) hypertension TDaP Immunization Today I10 - Essential (primary) hypertension, Z23 - Encounter for immunization Lipid Panel Today E11.65 - Type 2 diabetes mellitus with hyperglycemia Vitamin D 25-OH Total Today E55.9 - Vitamin D deficiency, unspecified Medications: New tadalafil 20 mg PO DAILY 5 days PRN 5 tabs 0RF sexual activity N52.9 - Male erectile dysfunction, unspecified Refilled cyclobenzaprine 5 mg PO BEDTIME 15 days PRN 15 tabs 0RF muscle spasm M53.3 - Sacrococcygeal disorders, not elsewhere classified naproxen 500 mg PO BID 30 days PRN 60 tabs 3RF pain M53.3 - Sacrococcygeal disorders, not elsewhere classified Coding Level of Care Code Est Pt Prev Care 40-64y([id number]) Diagnoses Annual physical exam Z00.00 Essential hypertension I10 Class 1 obesity due to excess calories without serious comorbidity with body mass index (BMI) of 32.0 to 32.9 in adult E66.09; Z68.32 Obesity type: due to excess calories Obesity classification: adult class 1 (BMI 30 - 34.9) Serious obesity comorbidity presence: without serious comorbidity Body mass index: BMI 32.0-32.9 Psoriasis L40.9 Type 2 diabetes mellitus with hyperglycemia, without long-term current use of insulin E11.65 Diabetes mellitus terminal make up operator insulin use: without assisted use Diabetes mellitus complication status: with hyperglycemia Erectile dysfunction, unspecified erectile dysfunction type N52.9 Erectile dysfunction type: unspecified Additional Codes STEPHEN-7 Assessment Billing - STEPHEN-7 Assessment Tool: STEPHEN-7 Assessment [id number] ([id number])
== END 2023-07-29 09:32 | disposition home or self-care (01) ==
PROVIDERS: PCP Nurse Practitioner Family; Visit Provider Physician Assistant
DX: Z00.00 Encounter for general adult medical examination without abnormal findings (principal); E11.65 Type 2 diabetes mellitus with hyperglycemia; I10 Essential (primary) hypertension; Z23 Encounter for immunization; E66.09 Other obesity due to excess calories; Z68.32 Body mass index [BMI] 32.0-32.9, adult; L40.9 Psoriasis, unspecified; N52.9 Male erectile dysfunction, unspecified
CPT/HCPCS: 90471; 90715; 99396

== ENCOUNTER 2023-12-08 07:42 | Outpatient (REF) | payer OTHER, SELFPAY ==
[2023-12-08 08:41] LABS: Alanine Aminotransferase 29 U/L (0-40); Albumin Level 4.1 g/dL (3.5-5.0); Alkaline Phosphatase 62 U/L (39-117); Anion Gap 13 (12-20); Aspartate Amino Transferase 22 U/L (5-37); Bilirubin Total 0.9 mg/dL (0.0-1.0); Blood Urea Nitrogen 21 mg/dL (9-16); Calcium 9.3 mg/dL (8.4-10.2); Carbon Dioxide 27 mmol/L (22-29); Chloride 103 mmol/L (96-108); Cholesterol 211 mg/dL (<200); Estimated Glomerular Filt Rate > 60; Glucose Fasting 118 mg/dL (60-99); HDL Cholesterol 45 mg/dL (>40); LDL Cholesterol Calculated 146 mg/dL (<100); Potassium 3.9 mmol/L (3.3-5.1); Sodium 139 mmol/L (135-145); Total Protein 7.6 g/dL (6.5-8.0); Triglycerides 102 mg/dL (<150)
[2023-12-08 08:58] LABS: Vitamin D 25-OH Total 32.5 ng/mL (>30)
== END 2023-12-08 07:43 | disposition home or self-care (01) ==
LOC: HO.LAB 07:42
PROVIDERS: PCP Physician Assistant; Visit Provider Physician Assistant
DX: E11.65 Type 2 diabetes mellitus with hyperglycemia (principal); I10 Essential (primary) hypertension; E55.9 Vitamin D deficiency, unspecified
CPT/HCPCS: 36415; 80053; 80061; 82306

== ENCOUNTER 2023-12-09 09:34 | Outpatient (AMB) | payer OTHER, SELFPAY ==
--- NOTE | 2023-12-09 09:45 | A.OFFPC_ITS ---
Vital Signs 12/09/23 09:50 Height 6 ft 2 in Weight 256 lb 8 oz BMI 32.9 BP 126/86 Blood Pressure Location Lt brachial Position Sitting Pulse 82 Pulse Source Pulse Oximeter Pulse Oximetry (%) 96 Oxygen Delivery Method Room Air Intake Visit Reasons: f/u DMII Sitecore Developer Required: No Accompanied by: Self / Same As Patient Allergies Seasonal Allergies Allergy (Mild, Verified 12/09/23 10:03) Itchy Eyes Medication List - Last Reconciled 12/09/23 by Nba Moe PA-C cholecalciferol (vitamin D3) 25 mcg PO DAILY 90 days cyclobenzaprine 5 mg PO BEDTIME PRN 15 days lisinopril-hydrochlorothiazide 20-12.5 mg 1 tab PO BID 30 days naproxen 500 mg PO BID PRN 30 days tadalafil 20 mg PO DAILY PRN 5 days triamcinolone acetonide 0.1% 1 appl topical BID 30 days Tobacco use date assessed: 07/29/23 Dental Screening Dental Screen Date: 07/29/23 HPI f/u DMII HPI Details Patient is a 58-year-old male here today for annual physical. Patient has a past medical history significant for hypertension, vitamin-D deficiency and occasional lower lumbar spine pain. 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 .. Type 2 diabetes: Today's A1c is 6.3 from 7.0. Has been making dietary modifications.. . Has lost 10 lb since last office visi t PLAN: Continue to work on lifestyle and dietary modifications. .. .. Hypertension: His blood pressure has been well controlled on current dose of lisinopril hydrochlorothiazide. .. HLD: Most recent lipid panel showing borderline total cholesterol and LDL 140. Did discuss starting statin therapy though would like to hold off and work on lifestyle and dietary modifications. Again goal LDL to be below 100 .. 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 He does report significant pain relief with naproxen and p.r.n. use of cyclobenzaprine. .. 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 Christian Crawford, Stormy Ricci, Amaury Sanchez and colleagues, with an educational jennifer from [employer]. Review of Systems Const Denies headache(s) Eyes Denies loss of vision ENT Denies vertigo, Denies dizziness, Denies headache(s) and Denies sore throat Card Denies chest pain, Denies leg edema and Denies lightheadedness Resp Denies cough, Denies hemoptysis and Denies wheezing GI Denies abdominal pain, Denies melena, Denies constipation, Denies diarrhea and Denies vomiting Denies dysuria, Denies urinary frequency and Denies urinary urgency Musc Denies arthralgias, Denies joint swelling, Denies numbness and Denies tingling Neuro Denies Abnormal speech present, Denies behavioral changes, Denies vertigo, Denies dizziness, Denies headache(s), Denies loss of vision, Denies memory loss, Denies numbness and Denies tingling Psych Denies anxiety, Denies behavioral changes, Denies depression, Denies memory loss and Denies panic attacks Amor/Lymph Denies easy bleeding and Denies easy bruising Aller/Immun Denies wheezing Physical exam (Primary Care) Vital Signs: Last Vital Signs Pulse 82 12/09/23 09:50 BP 126/86 12/09/23 09:50 Pulse Ox 96 12/09/23 09:50 Oxygen Delivery Method Room Air 12/09/23 09:50 BMI result Body Mass Index 32.9 Tobacco/Smoking Status: Tobacco use Status Tobacco use date assessed 07/29/23 12/09/23 09:51 Patient Tobacco Use Status Never used Tobacco 12/09/23 09:51 e-Cigarette/Vaping Use Never Used 12/09/23 09:51 Thrive Assessment: Date of Thrive Assessment Date Thrive assessed 07/29/23 12/09/23 09:51 Const General: healthy appearing, no acute distress, alert and awake Nutritional Appearance: well nourished Orientation/consciousness: oriented to person, oriented to place and oriented to time HENMT Ears: TM's normal bilaterally General nose exam: Normal nasal mucous membranes and turbinates present Eyes Conjunctivae: conjunctivae normal Sclerae: sclerae normal Pupils: Equal, round and reactive pupils present Neck Neck: Yes no lymphadenopathy and Yes no JVD Thyroid: Thyroid normal Carotids: no bruits Resp Effort & Inspection: normal respiratory effort and not tachypneic Auscultation: no crackles, no rales, no rhonchi and no wheezes Cardio Rate: regular rate Rhythm: regular rhythm Heart sounds: no murmurs and normal S1 and S2 GI Palpation (GI): Soft to palpation, nontender, no hepatomegaly and no splenomegaly Auscultation: normal bowel sounds Skin General skin exam: no rashes or lesions noted and dry skin Neuro General: oriented to person, oriented to place and oriented to time Cranial nerves: Yes Equal, round and reactive pupils present Speech: No Abnormal speech present Gait exam (Neuro): Normal gait present Motor exam (neuro): no tremor noted Extrem Right upper extremity: full ROM Left upper extremity: full ROM Right lower extremity: full ROM; no edema Left lower extremity: full ROM; no edema Psych Mental Status: mental status grossly normal Speech and movement: Normal speech and movement present Affect: normal affect Attitude: cooperative Thought process: Normal thought process present Assessment and Plan Assessment & Plan (1) DMII (diabetes mellitus, type 2): Code(s): E11.9 - Type 2 diabetes mellitus without complications Qualifiers: Diabetes mellitus nursing home insulin use: without supervisor intermediates use Diabetes mellitus complication status: with hyperglycemia Qualified Code(s): E11.65 - Type 2 diabetes mellitus with hyperglycemia Plan: Patient's most recent A1c at 6.3 from 7.0. Has been making dietary modifications. Not interested in any diabetic medication at this time. Goal A1c is to remain below 7.0 (2) Essential hypertension: Code(s): I10 - Essential (primary) hypertension Plan: Patient's blood pressure well controlled with current dose lisinopril hydrochlorothiazide. Goal blood pressures to remain below 140/90 (3) Obese: Code(s): E66.9 - Obesity, unspecified Qualifiers: Obesity type: due to excess calories Obesity classification: adult class 1 (BMI 30 - 34.9) Serious obesity comorbidity presence: without serious comorbidity Body mass index: BMI 32.0-32.9 Qualified Code(s): E66.09 - Other obesity due to excess calories; Z68.32 - Body mass index [BMI] 32.0-32.9, adult Plan: Patient does understand his BMI is over 30 will work on being more physically active and adapting to better eating habits to reduce his weight. (4) Psoriasis: Code(s): L40.9 - Psoriasis, unspecified Plan: Patient does have chronic psoriasis to which she uses moisturizers and topical steroids for. (5) HLD (hyperlipidemia): Code(s): E78.5 - Hyperlipidemia, unspecified Qualifiers: Hyperlipidemia type: mixed hyperlipidemia Qualified Code(s): E78.2 - Mixed hyperlipidemia Plan: Most recent lipid panel showing borderline high total cholesterol and LDL of 140. Offered cholesterol medication though patient declines and would like to work on dietary modifications. Will recheck fasting lipid panel in 6 months and if LDL above 100 will consider low-dose statin therapy. Goal LDL to be below 100 Orders: Orders AMB Hemoglobin A1c Today E11.65 - Type 2 diabetes mellitus with hyperglycemia Lipid Panel 6 Months E78.5 - Hyperlipidemia, unspecified Prostate Specific Antigen Scr 6 Months E78.5 - Hyperlipidemia, unspecified, Z12.5 - Encounter for screening for malignant neoplasm of prostate Complete Blood Count no Diff 6 Months E78.5 - Hyperlipidemia, unspecified Comprehensive [place]. Panel Fast 6 Months E11.65 - Type 2 diabetes mellitus with hyperglycemia Referrals Cologuard Test Z12.11 - Encounter for screening for malignant neoplasm of colon Medications: New diclofenac sodium 1% (Arthritis Pain (diclofenac)) apply to single elbow, wrist or hand; for hand includes palm/fingers/back of hand 2 grams topical QID 30 days PRN 100 grams 0RF pain (scale score 4-6) M19.039 - Primary osteoarthritis, unspecified wrist, M53.3 - Sacrococcygeal disorders, not elsewhere classified Refilled lisinopril-hydrochlorothiazide 20-12.5 mg 1 tab PO BID 30 days 60 tabs 4RF cyclobenzaprine 5 mg PO BEDTIME 15 days PRN 15 tabs 0RF muscle spasm M53.3 - Sacrococcygeal disorders, not elsewhere classified cholecalciferol (vitamin D3) 25 mcg PO DAILY 90 days 90 tabs 4RF tadalafil 20 mg PO DAILY 5 days PRN 5 tabs 1RF sexual activity N52.9 - Male er ectile dysfunction, unspecified naproxen 500 mg PO BID 30 days PRN 60 tabs 3RF pain M53.3 - Sacrococcygeal disorders, not elsewhere classified triamcinolone acetonide 0.1% 1 appl topical BID 30 days 80 grams 6RF L40.9 - Psoriasis, unspecified Patient Instructions: Goal: A1c to remain below 7.0, LDL to be below 100 Barriers: Adherence to physical activity and healthy eating habits Coding Level of Care Code Est Pt Level 4 (88498) Diagnoses Type 2 diabetes mellitus with hyperglycemia, without long-term current use of insulin E11.65 Diabetes mellitus supervisor intermediates insulin use: without nursing home use Diabetes mellitus complication status: with hyperglycemia Essential hypertension I10 Class 1 obesity due to excess calories without serious comorbidity with body mass index (BMI) of 32.0 to 32.9 in adult E66.09; Z68.32 Obesity type: due to excess calories Obesity classification: adult class 1 (BMI 30 - 34.9) Serious obesity comorbidity presence: without serious comorbidity Body mass index: BMI 32.0-32.9 Psoriasis L40.9 Mixed hyperlipidemia E78.2 Hyperlipidemia type: mixed hyperlipidemia
[2023-12-09 09:50] VITALS: BP 126/86; PULSE 82; O2SAT 96; BMI 32.9
== END 2023-12-09 10:15 | disposition home or self-care (01) ==
PROVIDERS: PCP Physician Assistant; Visit Provider Physician Assistant
DX: E11.65 Type 2 diabetes mellitus with hyperglycemia (principal); I10 Essential (primary) hypertension; E66.09 Other obesity due to excess calories; Z68.32 Body mass index [BMI] 32.0-32.9, adult; L40.9 Psoriasis, unspecified; E78.2 Mixed hyperlipidemia
CPT/HCPCS: 99214

== ENCOUNTER 2024-06-10 10:53 | Outpatient (AMB) | payer OTHER, SELFPAY ==
--- NOTE | 2024-06-10 10:59 | A.OFFPC_ITS ---
Vital Signs 06/10/24 11:00 06/10/24 11:14 Height 6 ft 2 in Weight 263 lb 4 oz BMI 33.8 BP 164/110 H 138/100 H Blood Pressure Location Lt brachial Position Sitting Pulse 74 Pulse Source Pulse Oximeter Temp 97.1 F Temp Source Temporal Artery Scan Pulse Oximetry (%) 96 Oxygen Delivery Method Room Air Intake Visit Reasons: 6mth f/u Allergies Seasonal Allergies Allergy (Mild, Verified 06/10/24 11:06) Itchy Eyes Medication List - Last Reconciled 06/10/24 by Nba Moe PA-C cholecalciferol (vitamin D3) 25 mcg PO DAILY 90 days cyclobenzaprine 5 mg PO BEDTIME PRN 15 days diclofenac sodium 1% (Arthritis Pain (diclofenac)) 2 grams topical QID PRN 30 days lisinopril-hydrochlorothiazide 20-12.5 mg 1 tab PO BID 30 days naproxen 500 mg PO BID PRN 30 days tadalafil 20 mg PO DAILY PRN 5 days triamcinolone acetonide 0.1% 1 appl topical BID 30 days Tobacco use date assessed: 07/29/23 Dental Screening Dental Screen Date: 07/29/23 HPI 6mth f/u HPI Details Patient is a 58-year-old male here today for annual physical. Patient has a past medical history significant for hypertension, vitamin-D deficiency and occasional lower lumbar spine pain. 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 Concern--> Shoulder pain has been progressively worsening, especially at nig ht, affecting the right shoulder. There is a history of arthritis and neck/back pain, and the patient suspects potential rotator cuff involvement. Pain is partially mitigated by using topical cream and naproxen. Additionally, there was an episode of chest discomfort, felt as a sharp pain, occurring sporadically without recent recurrence. The patient expressed interest in investigating this if the symptoms return. .. Type 2 diabetes: Today's A1c is 6.4 from 7.0. Has been making dietary modifications.. . Which he attributes to holiday dietar y indiscretion PLAN: Continue to work on lifestyle and dietary modifications. .. Class 1 obesity: Have noted weight gain since last office visit. He admits to dietary indiscretion over the holidays. He will try to work on dietary and lifestyle modifications to help reduce his weight again. .. Hypertension: Blood pressure elevated today in office. He reports having a stressful day at work yesterday and only got 2 hours asleep. He continues with lisinopril hydrochlorothiazide which previously was helpful. PLAN: Again will work on lifestyle and dietary modifications to reduce his blood pressure .. HLD: Most recent lipid panel showing borderline total cholesterol and LDL 140. Did discuss starting statin therapy though would like to hold off and work on lifestyle and dietary modifications. Again goal LDL to be below 100 . 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 Christian Crawford, Stormy Ricci, Amaury Sanchez and colleagues, with an educational jennifer from [employer]. Review of Systems Const Denies headache(s) Eyes Denies loss of vision ENT Denies vertigo, Denies dizziness, Denies headache(s) and Denies sore throat Card Denies chest pain, Denies leg edema and Denies lightheadedness Resp Denies cough, Denies hemoptysis and Denies wheezing GI Denies abdominal pain, Denies melena, Denies constipation, Denies diarrhea and Denies vomiting Denies dysuria, Denies urinary frequency and Denies urinary urgency Musc Denies arthralgias, Denies joint swelling, Denies numbness and Denies tingling Neuro Denies Abnormal speech present, Denies behavioral changes, Denies vertigo, Denies dizziness, Denies headache(s), Denies loss of vision, Denies memory loss, Denies numbness and Denies tingling Psych Denies anxiety, Denies behavioral changes, Denies depression, Denies memory loss and Denies panic attacks Amor/Lymph Denies easy bleeding and Denies easy bruising Aller/Immun Denies wheezing Physical exam (Primary Care) Vital Signs: Last Vital Signs Temp 97.1 F 06/10/24 11:00 Pulse 74 06/10/24 11:00 BP 138/100 H 06/10/24 11:14 Pulse Ox 96 06/10/24 11:00 Oxygen Delivery Method Room Air 06/10/24 11:00 BMI result Body Mass Index 33.8 BMI Assessment/Plan discussion: High BMI High, discussed plan: lifestyle, weight reduction, dietary and physical activity Tobacco/Smoking Status: Tobacco use Status Tobacco use date assessed 07/29/23 06/10/24 11:05 Patient Tobacco Use Status Never used Tobacco 06/10/24 11:05 e-Cigarette/Vaping Use Never Used 06/10/24 11:05 Thrive Assessment: Date of Thrive Assessment Date Thrive assessed 07/29/23 06/10/24 11:05 Const General: healthy appearing, no acute distress, alert and awake Nutritional Appearance: well nourished Orientation/consciousness: oriented to person, oriented to place and oriented to time HENMT Ears: TM's normal bilaterally General nose exam: Normal nasal mucous membranes and turbinates present Eyes Conjunctivae: conjunctivae normal Sclerae: sclerae normal Pupils: Equal, round and reactive pupils present Neck Neck: Yes no lymphadenopathy and Yes no JVD Thyroid: Thyroid normal Carotids: no bruits Resp Effort & Inspection: normal respiratory effort and not tachypneic Auscultation: no crackles, no rales, no rhonchi and no wheezes Cardio Rate: regular rate Rhythm: regular rhythm Heart sounds: no murmurs and normal S1 and S2 GI Palpation (GI): Soft to palpation, nontender, no hepatomegaly and no splenomegaly Auscultation: normal bowel sounds Skin General skin exam: no rashes or lesions noted and dry skin Neuro General: oriented to person, oriented to place and oriented to time Cranial nerves: Yes Equal, round and reactive pupils present Speech: No Abnormal speech present Gait exam (Neuro): Normal gait present Motor exam (neuro): no tremor noted Extrem Right upper extremity: full ROM Left upper extremity: full ROM Right lower extremity: full ROM; no edema Left lower extremity: full ROM; no edema Psych Mental Status: mental status grossly normal Speech and movement: Normal speech and movement present Affect: normal affect Attitude: cooperative Thought process: Normal thought process present Office Procedures Flu Questionnaire Does the patient have a severe egg allergy?: No Does the patient have severe life threatening allergies?: No Does the patient have a fever or illness today?: No Has the patient ever had Guillain-[place] Syndrome?: No Has the patient ever had any past reaction to a flu shot?: No Results AMB Hemoglobin A1c AMB Hemoglobin A1c 6.4 % Last Edit by JOSE Travis on 06/10/24 11:19 Immunizations Fluarix Triv [id number] (PF) 45 mcg (15 mcg x 3)/0.5 mL IM syringe Performing Provider: Nba Moe PA-C [place] [facility] [facility] [place] [facility] Administered by: JOSE Travis on 06/10/24 11:06 Dose Route Admin Location Dispensed Lot Number Expiration Date NDC Parole Supervisor 0.5 mL IM Left Deltoid 0.5 mL [id number] 11/22/24 03500-058-89 [employer] VIS Given Date VIS Provided VIS Publication Date 06/10/24 Single Vaccine 20 Eligibility Eligibility Date Funding Source Not [facility] Eligible 06/10/24 Private Results Reviewed Results Reviewed: Laboratory Last Values Hgb A1c (Clinic) 6.4 % (4.0-6.0) H 06/10/24 10:58 Coding Level of Care Code Est Pt Level 4 (41531) Diagnoses Type 2 diabetes mellitus with hyperglycemia, without long-term current use of insulin E11.65 Diabetes mellitus complication status: with hyperglycemia Diabetes mellitus longterm insulin use: without termite control servicer use Chronic right shoulder pain M25.511; G89.29 Chronicity: chronic Essential hypertension I10 Mixed hyperlipidemia E78.2 Hyperlipidemia type: mixed hyperlipidemia Assessment & Plan Assessment & Plan (1) DMII (diabetes mellitus, type 2): Code(s): E11.9 - Type 2 diabetes mellitus without complications Category: Medical Qualifiers: Diabetes mellitus complication status: with hyperglycemia Diabetes mellitus termite control servicer insulin use: without longterm use Qualified Code(s): E11.65 - Type 2 diabetes mellitus with hyperglycemia Plan: Patient has unfortunately gained weight since last office visit. He reports dietary indiscretion over the holidays. Will recheck labs before upcoming appointment to evaluate fasting blood sugar and A1c. Today's A1c have improved to 6.4 from 7.0 Goal A1c is to be below 7 0 (2) Right shoulder pain: Code(s): M25.511 - Pain in right shoulder Category: Medical Qualifiers: Chronicity: chronic Qualified Code(s): M25.511 - Pain in right shoulder; G89.29 - Other chronic pain Plan: Garrett reports he has been having some right shoulder pain particularly when he lays down to sleep. Has been using analgesic cream which has been helpful. Will get an x-ray to evaluate for arthritis. Will consider orthopedic evaluation for possible cortisone injection (3) Essential hypertension: Code(s): I10 - Essential (primary) hypertension Category: Medical Plan: Patient's blood pressure elevated today in office. He reports his blood pressure is elevated due to a stressful work day yesterday and only getting a few hours asleep. Also has gained weight due to dietary indiscretion. He would like to work on dietary modifications to reduce his blood pressure. He continues on lisinopril hydrochlorothiazide (4) HLD (hyperlipidemia): Code(s): E78.5 - Hyperlipidemia, unspecified Category: Medical Qualifiers: Hyperlipidemia type: mixed hyperlipidemia Qualified Code(s): E78.2 - Mixed hyperlipidemia Plan: Most recent lipid panel showing borderline high cholesterol and LDL 144. He again was working on lifestyle and dietary modifications. 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
[2024-06-10 11:00] VITALS: BP 164/110; PULSE 74; TEMP 36.2; O2SAT 96; BMI 33.8
[2024-06-10 11:14] VITALS: BP 138/100
--- OUTSIDE RECORDS SUMMARY | 2024-06-10 13:29 | XMS_ITS ---
Author Name [facility] Organization Unknown History of Medication Use Medication Directions Dispensed Refills Start Date End Date Stat us timolol maleate (drops) 1 drop left eye twice a day 10/15/2023 completed ketorolac (drops) 1 % 10/15/2023 com pleted timolol maleate (drops) 1 drop left eye twice a day 10/02/2023 completed Pred Forte (drops,suspension) INSTILL 1 DROP INTO SURGICAL EYE 4 TIMES A DAY. 09/24/2023 completed moxifloxacin (drops) 0.5 % 09/24/2023 completed lisinopril (tablet) 20 mg 09/24/2023 c ompleted ketorolac (drops) 0.5 % 09/24/2023 com pleted benzonatate (TESSALON) 200 MG capsule Take 1 capsule (200 mg total) by mouth 3 (three) times a day as needed for cough. 06/06/2022 active lisinopril-hydrochlo rothiazide (PRINZIDE,ZESTORETIC ) 20-12.5 MG per tablet Take 1 tablet by mouth daily. 2 qd 06/06/2022 active Problems Problem Status Onset Date Problem Type Date of Resoluti on Source Acute cough [facility] for [facility] testing for COVID-19 virus [facility]
== END 2024-06-10 11:19 | disposition home or self-care (01) ==
PROVIDERS: PCP Physician Assistant; Visit Provider Physician Assistant
DX: E11.65 Type 2 diabetes mellitus with hyperglycemia (principal); M25.511 Pain in right shoulder; G89.29 Other chronic pain; I10 Essential (primary) hypertension; E78.2 Mixed hyperlipidemia; Z23 Encounter for immunization

== ENCOUNTER → 2024-06-10 10:53 | Outpatient (BNVA) | payer OTHER, SELFPAY | PROVIDERS: PCP Physician Assistant; Visit Provider Physician Assistant | DX: E11.65 Type 2 diabetes mellitus with hyperglycemia (principal); G89.29 Other chronic pain; M25.511 Pain in right shoulder; I10 Essential (primary) hypertension; E78.2 Mixed hyperlipidemia; Z23 Encounter for immunization | CPT/HCPCS: 83036; 90471; 90656 ==

== ENCOUNTER 2024-07-02 14:24 | Outpatient (REF) | payer OTHER, SELFPAY ==
--- OUTSIDE RECORDS SUMMARY | 2024-07-02 15:31 | XMS_ITS | Clinical Summary ---
Author Organization [facility] Address [address] [place] [id number] Care Team Providers Care Road Manager Name Role Phone Pcp, No Primary Care Provider Unavailabl e Allergies No known active allergies Medications Medication Sig Dispensed Refills Start Date End Date Status lisinopril-hydrochlo rothiazide (PRINZIDE,ZESTORETIC ) 20-12.5 MG per tablet Take 1 tablet by mouth daily. 2 qd Active benzonatate (TESSALON) 200 MG capsuleIndications:A cute cough Take 1 capsule (200 mg total) by mouth 3 (three) times a day as needed for cough. 30 capsule 05/27/2022 Active Social History Tobacco Use Types Packs/Day Years Used Date Smoking Tobacco: Never Assessed Sex and Gender Information Value Date Recorded Sex Assigned at Not on file Gender Identity Not on file Sexual Orientation Not on file Last Filed Vital Signs Vital Sign Reading Time Taken Comments Blood Pressure 182/121 05/27/2022 10:52 AM EST Pulse 83 05/27/2022 10:52 AM EST Temperature 36.1 ??C (97 ??F) 05/27/2022 10:52 AM EST Respiratory Rate - - Oxygen Saturation 98% 05/27/2022 10:52 AM EST Inhaled Oxygen Concentration - - Weight - - Height - - Body Mass Index - - Plan of Treatment Health Maintenance Due Date Last Done Comments Hepatitis C Virus Screening 1965 HIV Screening 12/04/1976 DTaP/Tdap/Td Vaccines (1 - Tdap) 12/04/1982 Colonoscopy 12/04/2008 Pneumococcal Vaccines 50+ (1 of 1 - PCV) 12/04/2013 Zoster (Shingles) Vaccine (1 of 2) 12/04/2013 Influenza Vaccine 12/25/2023 COVID-19 Vaccine (2023-2 5 season) 2024 12/20/2020, 09/24/2020 RSV Vaccine 60 years and older and Patients (1 - 1-dose 75+ series) 12/04/2038 Hepatitis B Vaccines Aged Out No long er eligible based on patient's age to complete this topic Pneumococcal Vaccine: Pediatric (0-5 Years) and At-Risk Patients (6 to 49 Years) Aged Out No longer eligible b ased on patient's age to complete this topic Care Teams Road Manager Relationship Specialty Start Date End Date Pcp, No PCP - General General Medicine 05/27/22
[2024-07-02 16:19] LABS: Influenza A PCR NEGATIVE (Negative); Influenza B PCR NEGATIVE (Negative); Resp Syncy Virus RNA Qual PCR NEGATIVE (Negative); SARS COV2 PCR INHOUSE NEGATIVE (Negative)
== END 2024-07-02 14:25 | disposition home or self-care (01) ==
LOC: HO.LAB 14:24
PROVIDERS: PCP Physician Assistant; Visit Provider Internal Medicine
DX: J98.8 Other specified respiratory disorders (principal)
CPT/HCPCS: 0241U; 96127

== ENCOUNTER 2024-07-02 14:24 | Outpatient (AMB) ==
--- NOTE | 2024-07-02 14:46 | MHC.PC.OV ---
Vital Signs 07/02/24 14:48 Height 6 ft 2 in Weight 256 lb 8 oz BMI 32.9 BP 144/84 H Blood Pressure Location Lt brachial Position Sitting Pulse 90 Pulse Source Pulse Oximeter Temp 97.3 F Temp Source Skin Pulse Oximetry (%) 95 Oxygen Delivery Method Room Air Intake Visit Reasons: Fever, vomiting, diarrhea Intake Note: Patient is here to follow up on Fever, vomiting, congestion, diarrhea and coughing. Yacht Builder Required: No Cafeteria Food Server: Not Required per policy Accompanied by: Self / Same As Patient Allergies Seasonal Allergies Allergy (Mild, Verified 07/02/24 16:03) Itchy Eyes Medication List - Last Reconciled 07/02/24 by Wesley Saldivar MD cholecalciferol (vitamin D3) 25 mcg PO DAILY 90 days cyclobenzaprine 5 mg PO BEDTIME PRN 15 days diclofenac sodium 1% (Arthritis Pain (diclofenac)) 2 grams topical QID PRN 30 days lisinopril-hydrochlorothiazide 20-12.5 mg 1 tab PO BID 30 days naproxen 500 mg PO BID PRN 30 days tadalafil 20 mg PO DAILY PRN 5 days triamcinolone acetonide 0.1% 1 appl topical BID 30 days Tobacco use date assessed: 07/02/24 Dental Screening Dental Screen Date: 07/02/24 Did you have a dental visit in the last 12 months?: No Did you have a dental problem in the last 6 months where you did not have access to dental care?: No Was dental information given to patient?: No HPI Fever, vomiting, diarrhea HPI Details Patient comes in today complaining of on and off fever, headaches and sore throat for the past 2 to 3 days States that his has also been since lately and he thinks that she has RSV States that he himself has not yet been tested He denies any dizziness Denies any chest pains, no SOB but relates (+) mild chest congestion and on and off cough - coughs up minimal clear phlegm at times No nausea/vomiting, no abdominal pain No change in bowel habits noted States that he will need a note for work for the past few days that he was sick [facility] Medical History Sleep apnea No pertinent past medical history Surgical History Lump on neck H/O right wrist surgery Social History Housing: House Alcohol intake: current Alcohol intake frequency: holidays/special occasions only Alcohol type: wine Patient Tobacco Use Status: Never used Tobacco e-Cigarette/Vaping Use: Never Used Second Hand Smoke Exposure: No service: No Current occupational status: employed 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 1. Little interest or pleasure in doing things: not at all 2. Feeling down, depressed, or hopeless: not at all 3. Trouble falling or staying asleep, or sleeping too much: not at all 4. Feeling tired or having little energy: not at all 5. Poor appetite or overeating: not at all 6. Feeling bad about yourself - or that you are a failure or have let yourself or your family down: not at all 7. Trouble concentrating on things, such as reading the newspaper or watching television: not at all 8. Moving or speaking so slowly that other people could have noticed. Or the opposite - being so fidgety or restless that you have been moving around a lot more than usual: not at all 9. Thoughts that you would be better off or of hurting yourself in some way: not at all Total score: 0 Depression Screening Interpretation: Negative Depression Screening Done: Yes 15224 - PHQ-9 Billing: Yes Source: Developed by Drs. Christian Crawford, Stormy Ricci, Amaury Sanchez and colleagues, with an educational jennifer from [employer]. Thrive Questionnaire Date Thrive assessed: 07/02/24 I am a: Patient What is your living situation today?: I have a steady place to live Within the past 12 months, did the food you bought not last and you didn't have the money to get more?: Never true Within the past 12 months, did you worry whether your food would run out before you got money to buy more?: Never true Do you have trouble paying for medicines?: No Do you have trouble getting transportation to medical appointments?: No Do you have trouble paying your heating and electricity bill?: No Do you have trouble taking care of your child, family member or friend?: No Do you have trouble with day-to-day activities such as bathing, preparing meals, shopping, managing finances, etc.?: No Are you currently unemployed and looking for a job?: No Are you interested in more education?: No Please select the resources that you would like help with: None Currently or been in a relationship where the following occur: No concerns reported THRIVE Score: 0 AUDIT C Alcohol Use Questionnaire (AUDIT-C) 1. How often do you have a drink containing alcohol?: Monthly or less 2. How many drinks containing alcohol do you have on a typical day when you are drinking?: 1 or 2 3. How often do you have six or more drinks on one occasion?: Never Total Score: 1 Score Reviewed/Action Taken: Yes STEPHEN-7 AMB Questionnaire STEPHEN-7 Date STEPHEN - 7 assessed: 07/02/24 Feeling nervous, anxious, or on edge: 0 = Not at all Not being able to stop or control worryin = Not at all Worrying too much about different things: 0 = Not at all Trouble relaxin = Not at all Being so restless that it is hard to sit still: 0 = Not at all Becoming easily annoyed or irritable: 0 = Not at all Feeling afraid as if something awful might happen: 0 = Not at all Total STEPHEN-7 score (0-4 normal; 5-9 mild; 10-14 moderate; 15-21 severe): 0 Source: Developed by Drs. Christian Crawford, Stormy Ricci, Amaury Sanchez and colleagues, with an educational jennifer from [employer]. Review of Systems Const Denies chills, Reports fatigue, Reports fever(s) and Reports headache(s) ENT Denies dysphagia, Denies dizziness, Denies otalgia, Reports headache(s), Reports nasal congestion, Denies neck pain, Denies odynophagia and Reports sore throat (mild) Card Denies chest pain, Denies irregular heart rhythm, Denies palpitations and Denies dyspnea Resp Reports chest congestion, Reports cough (on and off), Denies pain with cough, Denies dyspnea and Denies wheezing GI Denies abdominal pain, Denies constipation, Denies dysphagia, Denies diarrhea, Denies nausea, Denies odynophagia and Denies vomiting Denies difficulty urinating, Denies dysuria and Denies urinary frequency Musc Denies back pain, Denies arthralgias and Denies neck pain Skin/Breast Denies rash Neuro Denies dizziness and Reports headache(s) Endo Reports fatigue and Denies palpitations Aller/Immun Denies wheezing Physical exam (Primary Care) Vital Signs: Last Vital Signs Temp 97.3 F 07/02/24 14:48 Pulse 90 07/02/24 14:48 BP 144/84 H 07/02/24 14:48 Pulse Ox 95 07/02/24 14:48 Oxygen Delivery Method Room Air 07/02/24 14:48 BMI result Body Mass Index 32.9 Tobacco/Smoking Status: Tobacco use Status Tobacco use date assessed 07/02/24 07/02/24 14:53 Patient Tobacco Use Status Never used Tobacco 07/02/24 14:53 e-Cigarette/Vaping Use Never Used 07/02/24 14:53 PHQ-9: PHQ-9 Score PHQ-9: Total score 0 07/02/24 15:17 Depression Screening Interpretation: Negative Thrive Assessment: Date of Thrive Assessment Date Thrive assessed 07/02/24 07/02/24 14:53 Currently or been in a relationship where the following occur: No concerns reported Const General: no acute distress and alert HENMT Ears: TM's normal bilaterally and EAC's normal Throat: Yes tonsils normal (no TP congestion noted) and Yes posterior oropharynx abnormal ((+) erythema of the posterior pharynx) Neck Neck: Yes supple and No lymphadenopathy Thyroid: Thyroid normal Resp Auscultation: no crackles, no rales, rhonchi (occasionally) throughout and no wheezes Cardio Rate: regular rate Rhythm: regular rhythm Heart sounds: no murmurs GI Palpation (GI): Soft to palpation and nontender Auscultation: normal bowel sounds Skin Rashes: no rashes Extrem General: Yes no clubbing, cyanosis or edema Coding Level of Care Code Est Pt Level 3 (29533) Diagnoses Respiratory tract infection J98.8 Additional Codes PHQ-9 - 89090 - PHQ-9 Billing: Yes ([id number]) Assessment & Plan Assessment & Plan (1) Respiratory tract infection: Code(s): J98.8 - Other specified respiratory disorders Category: Medical Plan: Will send patient to the lab [facility] to check his viral panel He thinks that he has RSV as his is reportedly positive for it Have advised patient that even if he has RSV, there is no approved treatment for RSV other than management of symptoms with OTC cough/cold meds and OTC Tylenol PRN for headaches and pain Have advised patient that if he tests positive for any of the other conditions, we will then send in Rx for the indicated medications that he will need to his local pharmacy Have advised him in the meantime to make sure he stays hydrated, eat well and get plenty of rest and sleep at night, in addition to symptomatic treatment Per request, will also provide patient with an excuse note for work Plan To return as scheduled next month for his annual physical examination with his PCP Orders: Orders SARS-CoV2/FLU/RSV 07/02/24 J98.8 - Other specified respiratory disorders
[2024-07-02 14:48] VITALS: BP 144/84; PULSE 90; TEMP 36.3; O2SAT 95; BMI 32.9
== END 2024-07-02 15:17 | disposition home or self-care (01) ==
DX: J98.8 Other specified respiratory disorders (principal)

== ENCOUNTER 2024-07-16 16:47 | Outpatient (AMB) | payer OTHER, SELFPAY ==
--- NOTE | 2024-07-16 16:47 | A.OFFPC_ITS ---
Intake Visit Reasons: Sick for 3 weeks Hose Finisher Required: No Accompanied by: Self / Same As Patient Allergies Seasonal Allergies Allergy (Mild, Verified 07/16/24 17:13) Itchy Eyes Medication List - Last Reconciled 07/16/24 by Wesley Saldivar MD azithromycin take 500 mg today (day 1), then 250 mg for 4 days (days 2-5) PO cholecalciferol (vitamin D3) 25 mcg PO DAILY 90 days cyclobenzaprine 5 mg PO BEDTIME PRN 15 days diclofenac sodium 1% (Arthritis Pain (diclofenac)) 2 grams topical QID PRN 30 days lisinopril-hydrochlorothiazide 20-12.5 mg 1 tab PO BID 30 days naproxen 500 mg PO BID PRN 30 days tadalafil 20 mg PO DAILY PRN 5 days triamcinolone acetonide 0.1% 1 appl topical BID 30 days Tobacco use date assessed: 07/16/24 Dental Screening Dental Screen Date: 07/16/24 Did you have a dental visit in the last 12 months?: No Did you have a dental problem in the last 6 months where you did not have access to dental care?: No Was dental information given to patient?: No HPI Sick for 3 weeks HPI Details Patient's follow-up visit / consultation today is done over the phone - this is a Telehealth visit Patient's current medications have been reviewed and verified with patient and / or caregiver / proxy and have been updated accordingly in the medication list Patient states that he has been experiencing increased cough and congestion for about 3 weeks now States that he has been taking some OTC cough / cold medications for the past couple weeks with only temporary relief of his symptoms He went and got tested a couple of weeks ago for influenza and COVID and he tested negative for both as well as for RSV Patient feels that his cough is now getting worse and states that he coughs up thick whitish to yellowish phlegm at times He denies any fever or sore throat; denies any headaches or dizziness Denies any chest pains, no increased shortness of breath No nausea/vomiting, no abdominal pain No change in bowel habits noted PFSH Medical History Sleep apnea No pertinent past medical history Surgical History Lump on neck H/O right wrist surgery Social History Housing: House Alcohol intake: current Alcohol intake frequency: holidays/special occasions only Alcohol type: wine Patient Tobacco Use Status: Never used Tobacco e-Cigarette/Vaping Use: Never Used Second Hand Smoke Exposure: No service: No Current occupational status: employed 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 1. Little interest or pleasure in doing things: not at all 2. Feeling down, depressed, or hopeless: not at all 3. Trouble falling or staying asleep, or sleeping too much: not at all 4. Feeling tired or having little energy: not at all 5. Poor appetite or overeating: not at all 6. Feeling bad about yourself - or that you are a failure or have let yourself or your family down: not at all 7. Trouble concentrating on things, such as reading the newspaper or watching television: not at all 8. Moving or speaking so slowly that other people could have noticed. Or the opposite - being so fidgety or restless that you have been moving around a lot more than usual: not at all 9. Thoughts that you would be better off or of hurting yourself in some way: not at all Total score: 0 Depression Screening Interpretation: Negative Depression Screening Done: Yes 42272 - PHQ-9 Billing: Yes Source: Developed by Drs. Christian Crawford, Stormy Ricci, Amaury Sanchez and colleagues, with an educational jennifer from [employer]. Thrive Questionnaire Date Thrive assessed: 07/16/24 I am a: Patient What is your living situation today?: I have a steady place to live Within the past 12 months, did the food you bought not last and you didn't have the money to get more?: Never true Within the past 12 months, did you worry whether your food would run out before you got money to buy more?: Never true Do you have trouble paying for medicines?: No Do you have trouble getting transportation to medical appointments?: No Do you have trouble paying your heating and electricity bill?: No Do you have trouble taking care of your child, family member or friend?: No Do you have trouble with day-to-day activities such as bathing, preparing meals, shopping, managing finances, etc.?: No Are you currently unemployed and looking for a job?: No Are you interested in more education?: No Please select the resources that you would like help with: None Currently or been in a relationship where the following occur: No concerns reported THRIVE Score: 0 AUDIT C Alcohol Use Questionnaire (AUDIT-C) 1. How often do you have a drink containing alcohol?: Monthly or less 2. How many drinks containing alcohol do you have on a typical day when you are drinking?: 1 or 2 3. How often do you have six or more drinks on one occasion?: Never Total Score: 1 Score Reviewed/Action Taken: Yes STEPHEN-7 AMB Questionnaire STEPHEN-7 Date STEPHEN - 7 assessed: 07/16/24 Feeling nervous, anxious, or on edge: 0 = Not at all Not being able to stop or control worryin = Not at all Worrying too much about different things: 0 = Not at all Trouble relaxin = Not at all Being so restless that it is hard to sit still: 0 = Not at all Becoming easily annoyed or irritable: 0 = Not at all Feeling afraid as if something awful might happen: 0 = Not at all Total STEPHEN-7 score (0-4 normal; 5-9 mild; 10-14 moderate; 15-21 severe): 0 Source: Developed by Drs. Christian Crawford, Stormy Ricci, Amaury Sanchez and colleagues, with an educational jennifer from [employer]. Review of Systems Const Denies chills, Denies fatigue, Denies fever(s) and Denies headache(s) ENT Denies dysphagia, Denies dizziness, Denies otalgia, Denies headache(s), Reports nasal congestion, Denies neck pain, Denies odynophagia and Denies sore throat Card Denies chest pain, Denies palpitations and Denies dyspnea Resp Reports chest congestion, Reports cough (recurrent, coughs up minimal whitish to yellowish phlegm at times), Denies dyspnea and Denies wheezing GI Denies abdominal pain, Denies constipation, Denies dysphagia, Denies heartburn, Denies diarrhea, Denies nausea, Denies odynophagia and Denies vomiting Denies dysuria, Denies nocturia and Denies urinary frequency Musc Denies back pain and Denies neck pain Skin/Breast Denies rash Neuro Denies dizziness and Denies headache(s) Endo Denies fatigue and Denies palpitations Aller/Immun Denies wheezing Physical exam (Primary Care) Vital Signs: Physical examination is not performed as visit / consultation today is done over the phone - Telehealth visit All physical findings indicated here, if present, are as per patient's and / or caregivers / proxy's report Tobacco/Smoking Status: Tobacco use Status Tobacco use date assessed 07/16/24 07/16/24 16:49 Patient Tobacco Use Status Never used Tobacco 07/16/24 16:49 e-Cigarette/Vaping Use Never Used 07/16/24 16:49 PHQ-9: PHQ-9 Score PHQ-9: Total score 0 07/16/24 17:15 Depression Screening Interpretation: Negative Thrive Assessment: Date of Thrive Assessment Date Thrive assessed 07/16/24 07/16/24 16:49 Currently or been in a relationship where the following occur: No concerns reported Telehealth Telehealth Telehealth Platform: Telephone Location of provider rendering services: practice address Location of patient: address on file Patient Identification confirmed using: Name, : Yes Telehealth method: voice only Patient verbally consented to treatment: Yes Patient verbally consented to billing insurance company: Yes Patient informed of any privacy concerns related to visit: Yes Minutes spent on Phone/Video with Pt.: 16 Coding Level of Care Code Tele Est Pt Level 3 (15848) Diagnoses Respiratory tract infection J98.8 Additional Codes PHQ-9 - 87129 - PHQ-9 Billing: Yes ([id number]) Assessment & Plan Assessment & Plan (1) Respiratory tract infection: Code(s): J98.8 - Other specified respiratory disorders Category: Medical Plan: Patient's symptoms of cough and congestion have been ongoing for over 3 weeks now He tested negative for influenza, COVID and RSV a couple of weeks ago Will go ahead and start him empirically on Azithromycin QD x 5 days Have also recommended that he can take OTC Coricidin PRN for symptomatic relief as he has high blood pressure Plan To return as scheduled next month for his annual physical examination with his PCP Medications: New azithromycin take 500 mg today (day 1), then 250 mg for 4 days (days 2-5) PO 6 tabs 0RF
--- OUTSIDE RECORDS SUMMARY | 2024-07-16 16:48 | XMS_ITS | Clinical Summary ---
Author Organization [facility] Address [address] [place] [id number] Care Team Providers Care Bench Repair Technician Name Role Phone Pcp, No Primary Care [...] age to complete this topic Care Teams Bench Repair Technician Relationship Specialty Start Date End Date Pcp, No PCP - General General Medicine 05/27/22
== END 2024-07-16 17:38 | disposition home or self-care (01) ==
LOC: HO.HMCH 16:47
PROVIDERS: PCP Physician Assistant; Visit Provider Internal Medicine
DX: J98.8 Other specified respiratory disorders (principal)

== ENCOUNTER → 2024-07-16 16:47 | Outpatient (BNVA) | payer OTHER, SELFPAY | PROVIDERS: PCP Physician Assistant; Visit Provider Internal Medicine | DX: J98.8 Other specified respiratory disorders (principal) | CPT/HCPCS: 96127 ==

== ENCOUNTER 2024-08-02 12:49 | Outpatient (REF) | payer OTHER, SELFPAY ==
--- NOTE | ~2024-08-02 | XR_ITS ---
EXAMINATION: XR SHOULDER, RIGHT CLINICAL INFORMATION: M25.511 - Pain in right shoulder COMPARISON: None available. TECHNIQUE: AP external rotation, Grashey, scapular Y, and axillary views of the right shoulder. FINDINGS: No acute cortical disruption or malalignment. 1 mm calcification lateral to the acromion. No lytic or blastic lesions. No subcutaneous emphysema. XR/XR shoulder RT min 2V IMPRESSION: No acute fracture or dislocation. Nonspecific 1 mm calcification lateral to the acromion. Electronically signed by: Terrence Ovalle MD 08/03/2024 09:42 AM EDT
[2024-08-02 13:30] LABS: Hematocrit 46.7 % (42.0-52.0); Hemoglobin 15.7 g/dl (14.0-18.0); Mean Corpuscular HGB Conc 33.6 g/dl (31.0-36.0); Mean Corpuscular Hemoglobin 29.7 pg (27.0-33.0); Mean Corpuscular Volume 88.4 fL (80.0-98.0); Mean Platelet Volume 10.4 fL (9.4-12.4); Platelet Count 200 X10*3/uL (160-400); Red Blood Count 5.28 X10*6/uL (4.60-5.80); Red Cell Distribution Width 13.8 % (11.0-16.0); White Blood Count 5.7 X10*3/uL (4.8-10.8)
[2024-08-02 14:14] LABS: Alanine Aminotransferase 42 U/L (0-40); Albumin Level 3.9 g/dL (3.5-5.0); Alkaline Phosphatase 60 U/L (39-117); Anion Gap 11 (12-20); Aspartate Amino Transferase 27 U/L (5-37); Blood Urea Nitrogen 20 mg/dL (9-16); Calcium 9.6 mg/dL (8.4-10.2); Carbon Dioxide 27 mmol/L (22-29); Chloride 104 mmol/L (96-108); Cholesterol 201 mg/dL (<200); Estimated Glomerular Filt Rate > 60; Glucose Fasting 114 mg/dL (60-99); HDL Cholesterol 41 mg/dL (>40); LDL Cholesterol Calculated 142 mg/dL (<100); Potassium 4.2 mmol/L (3.3-5.1); Sodium 138 mmol/L (135-145); Total Protein 7.8 g/dL (6.5-8.0); Triglycerides 94 mg/dL (<150)
--- OUTSIDE RECORDS SUMMARY | 2024-08-02 14:22 | XMS_ITS | Clinical Summary ---
Author Organization [facility] Address [address] [place] [id number] Care Team Providers Care Belt Builder Helper Name Role Phone Pcp, No Primary Care [...] age to complete this topic Care Teams Belt Builder Helper Relationship Specialty Start Date End Date Pcp, No PCP - General General Medicine 05/27/22
[2024-08-02 14:29] LABS: Prostate Specific Antigen Scr 1.36 ng/mL (<0.05-4.0)
== END 2024-08-02 12:50 | disposition home or self-care (01) ==
LOC: HO.XRAY 12:49
PROVIDERS: PCP Physician Assistant; Visit Provider Physician Assistant
DX: M25.511 Pain in right shoulder (principal); E78.5 Hyperlipidemia, unspecified; E11.65 Type 2 diabetes mellitus with hyperglycemia; Z12.5 Encounter for screening for malignant neoplasm of prostate
CPT/HCPCS: 36415; 73030; 80053; 80061; 84153; 85027

== ENCOUNTER → 2024-08-02 12:58 | Outpatient (BNV) | payer OTHER, SELFPAY | PROVIDERS: PCP Physician Assistant; Visit Provider Radiology Diagnostic Radiology | DX: M25.511 Pain in right shoulder (principal) | CPT/HCPCS: 73030 ==

== ENCOUNTER 2024-08-24 15:18 | Outpatient (AMB) | payer OTHER, SELFPAY ==
--- NOTE | 2024-08-24 15:28 | MHC.PC.OV ---
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 Accompanied by: Self / Same As Patient Allergies Seasonal Allergies Allergy (Mild, Verified 08/24/24 15:34) Itchy Eyes Medication List - Last Reconciled 08/24/24 by Nba Moe PA-C cholecalciferol (vitamin D3) 25 mcg PO DAILY 90 days cyclobenzaprine 5 mg PO BEDTIME PRN 15 days diclofenac sodium 1% (Arthritis Pain (diclofenac)) 2 grams topical QID PRN 30 days lisinopril-hydrochlorothiazide 20-12.5 mg 1 tab PO BID 30 days naproxen 500 mg PO BID PRN 30 days prednisolone acetate 1% 1 drp ophthalmic (eye) QID tadalafil 20 mg PO DAILY PRN 5 days timolol maleate 0.5% drps ophthalmic (eye) triamcinolone acetonide 0.1% 1 appl topical BID 30 days Tobacco use date assessed: 07/16/24 Dental Screening Dental Screen Date: 07/16/24 HPI annual exam HPI Details Patient is a 58-year-old male here today for annual physical. Patient has a past medical history significant for hypertension, vitamin-D deficiency and occasional lower lumbar spine pain. 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 Concern--> Shoulder pain has been progressively worsening, especially at night, affecting the right shoulder. There is a history of arthritis and neck/back pain, and the patient suspects potential rotator cuff involvement. Pain is partially mitigated by using topical cream and naproxen. Additionally, there was an episode of chest discomfort, felt as a sharp pain, occurring sporadically without recent recurrence. The patient expressed interest in investigating this if the symptoms return. .. Type 2 diabetes: Most recent A1c is 6.4. Has been making dietary modifications.. . PLAN: Continue to work on lifestyle and dietary modifications. .. Class 1 obesity: Have noted weight gain since last office visit. He admits to dietary indiscretion over the winter and due to personal issues in his life. He will try to work on dietary and lifestyle modifications to help reduce his weight again. .. Hypertension: Blood pressure elevated today in office. He reports having a stressful day at work yesterday and only got 2 hours asleep. He continues with lisinopril hydrochlorothiazide which previously was helpful. PLAN: Again will work on lifestyle and dietary modifications to reduce his blood pressure .. HLD: Most recent lipid panel showing borderline total cholesterol and LDL 140. Did discuss starting statin therapy though would like to hold off and work on lifestyle and dietary modifications. Again goal LDL to be below 100 Colorectal cancer screening: Cologuard done in 2023, NEG Vaccines: Up-to-date with flu vaccine, pneumonia vaccine, tetanus vaccine, considering shingles vaccine Laboratory Tests 07/26/23 12/08/23 06/10/24 10:46 07:49 10:58 RBC Fasting Glucose 118 H Hgb A1c (Clinic) 6.4 H Cholesterol 211 H LDL Cholesterol, C alc 146 H PSA Screen Urine Microalbumin 6.0 08/02/24 12:57 RBC 5.28 Fasting Glucose 114 H Hgb A1c (Clinic) Cholesterol 201 H LDL Cholesterol, C alc 142 H PSA Screen 1.36 Urine Microalbumin PFS Medical History Sleep apnea No pertinent past medical history Surgical History Lump on neck H/O right wrist surgery Family History (Updated 08/24/24 @ 15:43 by Nba Moe PA-C) Father CAD (coronary artery disease) Mother DMII (diabetes mellitus, type 2) Social History Housing: House Alcohol intake: current Alcohol intake frequency: holidays/special occasions only Alcohol type: wine Patient Tobacco Use Status: Never used Tobacco e-Cigarette/Vaping Use: Never Used Second Hand Smoke Exposure: No service: No Current occupational status: employed 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 1. Little interest or pleasure in doing things: not at all 2. Feeling down, depressed, or hopeless: not at all 3. Trouble falling or staying asleep, or sleeping too much: not at all 4. Feeling tired or having little energy: not at all 5. Poor appetite or overeating: not at all 6. Feeling bad about yourself - or that you are a failure or have let yourself or your family down: not at all 7. Trouble concentrating on things, such as reading the newspaper or watching television: not at all 8. Moving or speaking so slowly that other people could have noticed. Or the opposite - being so fidgety or restless that you have been moving around a lot more than usual: not at all 9. Thoughts that you would be better off or of hurting yourself in some way: not at all Total score: 0 Depression Screening Interpretation: Negative Depression Screening Done: Yes 89219 - PHQ-9 Billing: Yes Source: Developed by Drs. Christian Crawford, Stormy Ricci, Amaury Sanchez and colleagues, with an educational jennifer from [employer]. Thrive Questionnaire Date Thrive assessed: 08/24/24 I am a: Patient What is your living situation today?: I choose not to answer this question Within the past 12 months, did the food you bought not last and you didn't have the money to get more?: I choose not to answer this question Within the past 12 months, did you worry whether your food would run out before you got money to buy more?: I choose not to answer this question Do you have trouble paying for medicines?: I choose not to answer this question Do you have trouble getting transportation to medical appointments?: I choose not to answer this question Do you have trouble paying your heating and electricity bill?: I choose not to answer this question Do you have trouble taking care of your child, family member or friend?: I choose not to answer this question Do you have trouble with day-to-day activities such as bathing, preparing meals, shopping, managing finances, etc.?: I choose not to answer this question Are you currently unemployed and looking for a job?: I choose not to answer this question Are you interested in more education?: I choose not to answer this question Please select the resources that you would like help with: None Currently or been in a relationship where the following occur: I choose not to answer THRIVE Score: 0 AUDIT C Alcohol Use Questionnaire (AUDIT-C) 1. How often do you have a drink containing alcohol?: Never 3. How often do you have six or more drinks on one occasion?: Never Total Score: 0 Score Reviewed/Action Taken: No STEPHEN-7 AMB Questionnaire STEPHEN-7 Date STEPHEN - 7 assessed: 08/24/24 Feeling nervous, anxious, or on edge: 0 = Not at all Not being able to stop or control worryin = Not at all Worrying too much about different things: 0 = Not at all Trouble relaxin = Not at all Being so restless that it is hard to sit still: 0 = Not at all Becoming easily annoyed or irritable: 0 = Not at all Feeling afraid as if something awful might happen: 0 = Not at all Total STEPHEN-7 score (0-4 normal; 5-9 mild; 10-14 moderate; 15-21 severe): 0 Source: Developed by Drs. Christian Crawford, Stormy Ricci, Amaury Sanchez and colleagues, with an educational jennifer from [employer]. STEPHEN-7 Assessment Billing STEPHEN-7 Assessment Tool: STEPHEN-7 Assessment 91666 Review of Systems Const Denies body aches, Denies chills, Denies excessive sweating, Denies fatigue, Denies fever(s) and Denies headache(s) Eyes Denies blurry vision ENT Denies dysphagia, Denies vertigo, Denies dizziness, Denies headache(s), Denies hearing loss and Denies tinnitus Card Denies chest pain, Denies chest pain with activity, Denies syncope, Denies irregular heart rhythm and Denies dyspnea Resp Denies chest congestion, Denies cough, Denies hemoptysis, Denies dyspnea and Denies wheezing GI Denies abdominal pain, Denies melena, Denies hematochezia, Denies coffee ground emesis, Denies dysphagia, Denies diarrhea, Denies nausea and Denies vomiting Denies difficulty urinating, Denies dysuria, Denies urinary frequency, Denies urinary hesitancy and Denies urinary urgency Musc Denies arthralgias, Denies limited range of motion, Denies muscle cramps and Denies muscle weakness Skin/Breast Denies rash and Denies skin ulcer Neuro Denies Abnormal speech present, Denies confusion, Denies vertigo, Denies dizziness, Denies syncope, Denies headache(s), Denies memory loss and Denies seizure-like activity Psych Denies anxiety, Denies confusion, Denies depression, Denies memory loss, Denies panic attacks and Denies paranoia Endo Denies excessive sweating, Denies fatigue, Denies flushing, Denies polydipsia and Denies polyuria Aller/Immun Denies wheezing Physical exam (Primary Care) Vital Signs: Last Vital Signs Temp 97.1 F 08/24/24 15:32 Pulse 78 08/24/24 15:32 BP 132/86 08/24/24 15:32 Pulse Ox 95 08/24/24 15:32 Oxygen Delivery Method Room Air 08/24/24 15:32 BMI result Body Mass Index 33.7 BMI Assessment/Plan discussion: High BMI High, discussed plan: lifestyle, weight reduction, dietary and physical activity Tobacco/Smoking Status: Tobacco use Status Tobacco use date assessed 07/16/24 08/24/24 15:30 Patient Tobacco Use Status Never used Tobacco 08/24/24 15:30 e-Cigarette/Vaping Use Never Used 08/24/24 15:30 PHQ-9: PHQ-9 Score PHQ-9: Total score 0 08/24/24 15:35 Depression Screening Interpretation: Negative Thrive Assessment: Date of Thrive Assessment Date Thrive assessed 08/24/24 08/24/24 15:30 Currently or been in a relationship where the following occur: I choose not to answer Const Other: Obese General: cooperative, comfortable, no acute distress, alert and awake; No confusion Orientation/consciousness: oriented to person, oriented to place, patient oriented x3 and No confusion HENMT Head: Yes normocephalic Ears: external ears normal and TM's normal bilaterally Face and sinus: No sinus tenderness Mouth: Normal oral and palatal mucosa present and tongue normal Teeth and gingiva: dentition normal and gingiva normal Throat: Yes posterior oropharynx normal, Yes tonsils normal and Yes uvula midline Eyes Conjunctivae: conjunctivae normal Sclerae: sclerae normal Pupils: Equal, round and reactive pupils present EOM: EOMs intact bilaterally Direct Ophthalmoscopy: No no photophobia Neck Neck: Yes no lymphadenopathy, No tender and Yes no JVD Thyroid: Thyroid normal Carotids: no bruits Chest Chest palpation & inspection: no tenderness Resp Effort & Inspection: normal respiratory effort, no audible wheezes, not labored and no stridor Auscultation: no crackles, no rales, no rhonchi and no wheezes Cardio Jugular venous distension: no JVD Rate: regular rate, not bradycardic and not tachycardic Rhythm: regular rhythm Bruits: no carotid bruits Peripheral pulses: Peripheral pulses 2+ throughout GI Inspection: Yes normal to inspection, No abdominal wall ecchymosis and No visible herniation Palpation (GI): Soft to palpation, nontender, no guarding, not rigid and No hepatosplenomegaly present Auscultation: normoactive bowel sounds General: Yes no CVA tenderness Back/Spine/Pelvis Back: no CVA tenderness and No back tenderness Cervical Spine: cervical ROM normal Thoracic/Lumbar Spine: thoracic and lumbar spine normal to inspection, straight leg raise negative bilaterally, No thoraco-lumbar ROM limited and No lumbar spinal tenderness Skin Lesions: no lesions Rashes: no rashes Wounds: no wounds Neuro General: oriented to person, oriented to place, patient oriented x3, CN's II-XI intact bilaterally and No confusion Cranial nerves: Yes Equal, round and reactive pupils present and Yes Normal accommodation reflex present Cognition (Neuro): normal cognition Speech: No Abnormal speech present Gait exam (Neuro): Normal gait present Motor exam (neuro): 5/5 motor strength present throughout Extrem Right upper extremity: full ROM; no cyanosis Left upper extremity: full ROM; no cyanosis Right lower extremity: no edema Left lower extremity: no edema Psych Appearance: grossly normal Mental Status: mental status grossly normal Affect: normal affect Attitude: cooperative Thought process: Normal thought process present Coding Level of Care Code Est Pt Prev Care 40-64y(24265) Diagnoses Annual physical exam Z00.00 Type 2 diabetes mellitus with hyperglycemia, without long-term current use of insulin E11.65 Diabetes mellitus complication status: with hyperglycemia Diabetes mellitus custodial insulin use: without custodial use Chronic right shoulder pain M25.511; G89.29 Chronicity: chronic Essential hypertension I10 Mixed hyperlipidemia E78.2 Hyperlipidemia type: mixed hyperlipidemia Chest pain, unspecified type R07.9 Chest pain type: unspecified Class 1 obesity E66.811 Additional Codes STEPHEN-7 Assessment Billing - STEPHEN-7 Assessment Tool: STEPHEN-7 Assessment [id number] ([id number]) PHQ-9 - 92662 - PHQ-9 Billing: Yes ([id number]) Assessment & Plan Assessment & Plan (1) Annual physical exam: Code(s): Z00.00 - Encounter for general adult medical examination without abnormal findings Category: Medical Plan: As per HPI (2) DMII (diabetes mellitus, type 2): Code(s): E11.9 - Type 2 diabetes mellitus without complications Category: Medical Qualifiers: Diabetes mellitus complication status: with hyperglycemia Diabetes mellitus custodial insulin use: without 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 He reports dietary indiscretion over the winter. Will recheck labs before upcoming appointment to evaluate fasting blood sugar and A1c. Most recent A1c is 6.4 Goal A1c is to be below 7 0 (3) Right shoulder pain: Code(s): M25.511 - Pain in right shoulder Category: Medical Qualifiers: Chronicity: chronic Qualified Code(s): M25.511 - Pain in right shoulder; G89.29 - Other chronic pain Plan: Garrett reports he has been having some right shoulder pain particularly when he lays down to sleep. Has been using analgesic cream which has been helpful. X-rays of his shoulder did show some calcified tendinitis. He does reports shoulder pain is better with topical cream and use of naproxen. He seldomly uses cyclobenzaprine for his pain as well. (4) Essential hypertension: Code(s): I10 - Essential (primary) hypertension Category: Medical Plan: Patient's blood pressure acceptable today in office. He is concerned about hydrochlorothiazide has a makes his urinate a lot. 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 We will transition him to lisinopril 40 and amlodipine 5 mg and he will continue monitoring blood pressure at home.. Goal blood pressures to remain below 140/90 (5) HLD (hyperlipidemia): Code(s): E78.5 - Hyperlipidemia, unspecified Category: Medical Qualifiers: Hyperlipidemia type: mixed hyperlipidemia Qualified Code(s): E78.2 - Mixed hyperlipidemia Plan: Most recent lipid panel showing borderline high cholesterol and LDL 144. We did discuss using a statin to reduce his cardiovascular risk. He again was working on lifestyle and dietary modifications. Goal LDL is to be below 130 (6) Chest pain: Code(s): R07.9 - Chest pain, unspecified Category: Medical Qualifiers: Chest pain type: unspecified Qualified Code(s): R07.9 - Chest pain, unspecified Plan: Patient does report having intermittent chest pains over the left side of the chest and right side of his chest. Will send for cardiac stress testing evaluate for cardiac ischemia on physical exertion. Will send for EKG to evaluate for any abnormal heart rhythm. (7) Class 1 obesity: Code(s): E66.811 - Obesity, class 1 Category: Medical Plan: Patient does understand his BMI is over 30 will work on being more physically active and adapting to better eating habits to reduce his weight Orders: Orders Comprehensive [place]. Panel Fast 08/24/24 E11.65 - Type 2 diabetes mellitus with hyperglycemia CA stress test 08/24/24 R07.9 - Chest pain, unspecified ECG 12 lead EKG 08/24/24 R07.9 - Chest pain, unspecified Hemoglobin A1c 08/24/24 E11.65 - Type 2 diabetes mellitus with hyperglycemia Lipid Panel 08/24/24 E78.2 - Mixed hyperlipidemia Complete Blood Count no Diff 08/24/24 E11.65 - Type 2 diabetes mellitus with hyperglycemia Medications: New lisinopril 40 mg PO DAILY 30 tabs 3RF 30 days I10 - Essential (primary) hypertension amlodipine 5 mg PO DAILY 30 tabs 3RF 30 days I10 - Essential (primary) hypertension Refilled triamcinolone acetonide 0.1% 1 appl topical BID 80 grams 6RF 30 days L40.9 - Psoriasis, unspecified cyclobenzaprine 5 mg PO BEDTIME PRN 15 tabs 0RF muscle spasm 15 days M53.3 - Sacrococcygeal disorders, not elsewhere classified diclofenac sodium 1% (Arthritis Pain (diclofenac)) apply to single elbow, wrist or hand; for hand includes palm/fingers/back of hand 2 grams topical QID PRN 100 grams 3RF pain (scale score 4-6) 30 days M19.039 - Primary osteoarthritis, unspecified wrist, M53.3 - Sacrococcygeal disorders, not elsewhere classified tadalafil 20 mg PO DAILY PRN 5 tabs 1RF sexual activity 5 days N52.9 - Male erectile dysfunction, unspecified naproxen 500 mg PO BID PRN 60 tabs 3RF pain 30 days M53.3 - Sacrococcygeal disorders, not elsewhere classified On Hold lisinopril-hydrochlorothiazide 20-12.5 mg Hold Comment: Doctor's Order 1 tab PO BID 60 tabs 4RF 30 days Patient Instructions: Goal: A1c to remain below 6.5, LDL to be below 130 Barriers: Adherence to physical activity and healthy eating habits
[2024-08-24 15:32] VITALS: BP 132/86; PULSE 78; TEMP 36.2; O2SAT 95; BMI 33.7
--- OUTSIDE RECORDS SUMMARY | 2024-08-24 18:10 | XMS_ITS | Clinical Summary ---
Author Organization [facility] Address [address] [place] [id number] Care Team Providers Care Disassembler Product Name Role Phone Pcp, No Primary Care [...] age to complete this topic Care Teams Disassembler Product Relationship Specialty Start Date End Date Pcp, No PCP - General General Medicine 05/27/22
== END 2024-08-24 16:01 | disposition home or self-care (01) ==
PROVIDERS: PCP Physician Assistant; Visit Provider Physician Assistant
DX: Z00.00 Encounter for general adult medical examination without abnormal findings (principal); E11.65 Type 2 diabetes mellitus with hyperglycemia; E66.811 Obesity, class 1; Z68.33 Body mass index [BMI] 33.0-33.9, adult; M25.511 Pain in right shoulder; G89.29 Other chronic pain; I10 Essential (primary) hypertension; E78.2 Mixed hyperlipidemia; R07.9 Chest pain, unspecified

== ENCOUNTER → 2024-08-24 15:18 | Outpatient (BNVA) | payer OTHER, SELFPAY | PROVIDERS: PCP Physician Assistant; Visit Provider Physician Assistant | DX: Z00.00 Encounter for general adult medical examination without abnormal findings (principal); E11.65 Type 2 diabetes mellitus with hyperglycemia; G89.29 Other chronic pain; M25.511 Pain in right shoulder; I10 Essential (primary) hypertension; E78.2 Mixed hyperlipidemia; R07.9 Chest pain, unspecified; E66.811 Obesity, class 1; Z68.33 Body mass index [BMI] 33.0-33.9, adult | CPT/HCPCS: 96127 ==

== ENCOUNTER → 2024-09-07 10:33 | Outpatient (REF) | payer OTHER, SELFPAY ==
--- NOTE | 2024-09-07 10:37 | ECG_ITS ---
Test Reason : CHEST PAIN Blood Pressure : */* mmHG Vent. Rate : 77 BPM Atrial Rate : 77 BPM P-R Int : 140 ms QRS Dur : 86 ms QT Int : 376 ms P-R-T Axes : 42 -8 50 degrees QTcB Int : 425 ms Normal sinus rhythm Normal ECG No previous ECGs available Referred By: Nba Moe Electronically Signed By: ABHI AGUILLON MD
--- NOTE | 2024-09-07 10:37 | CA_ITS ---
Acquisition Time: 2024-09-07 10:46:53 Total Exercise Time: 00:06:14 Test Indications: CP Medications: SEE H&P Protocol: SOHAIL Max HR: 141 BPM 88% of Pred: 160 BPM Max BP: 158/84 mmHG Max Work Load: 7.3 METS Exercise stress test with exercise 6 mins 14 secs of Sohail Protocol, achieving 88% MPHR, with reports of mild SOB and fatigue, no chest pain, with one ventricular couplet, with normotensive response to exercise. Without EKG changes meeting criteria for ischemia. In recovery, breathing returned to baseline. Test reviewed with Dr. Herring. Referred By: Nba oMe Electronically Signed By: Shoaib Card
--- OUTSIDE RECORDS SUMMARY | 2024-09-07 12:40 | XMS_ITS | Clinical Summary ---
Author Organization [facility] Address [address] [place] [id number] Care Team Providers Care Screen Maker Name Role Phone Pcp, No Primary Care [...] age to complete this topic Care Teams Screen Maker Relationship Specialty Start Date End Date Pcp, No PCP - General General Medicine 05/27/22
== END ==
LOC: HO.CARD 10:33
PROVIDERS: PCP Physician Assistant; Visit Provider Physician Assistant
DX: R07.9 Chest pain, unspecified (principal)
CPT/HCPCS: 93005; 93017

== ENCOUNTER → 2024-09-07 10:37 | Outpatient (BNV) | payer OTHER, SELFPAY | PROVIDERS: PCP Physician Assistant | DX: R06.02 Shortness of breath (principal) | CPT/HCPCS: 93016; 93018 ==

== ENCOUNTER 2024-12-07 13:34 | Outpatient (REF) | payer OTHER, SELFPAY ==
[2024-12-07 14:53] LABS: Hematocrit 44.9 % (42.0-52.0); Hemoglobin 14.9 g/dl (14.0-18.0); Mean Corpuscular HGB Conc 33.2 g/dl (31.0-36.0); Mean Corpuscular Hemoglobin 29.6 pg (27.0-33.0); Mean Corpuscular Volume 89.1 fL (80.0-98.0); NRBC Abs Auto 0.000 X10*3/uL (0.0-0.012); NRBC Pct Auto 0.0 /100WBC (0.0-0.2); Platelet Count 206 X10*3/uL (160-400); Red Blood Count 5.04 X10*6/uL (4.60-5.80); White Blood Count 6.8 X10*3/uL (4.8-10.8)
--- OUTSIDE RECORDS SUMMARY | 2024-12-07 14:56 | XMS_ITS ---
Author Name [facility] Organization Unknown History of Medication Use Medication Directions Dispensed Refills Start Date End Date Stat us timolol maleate (drops) 1 drop left eye twice a day 09/26/2023 completed benzonatate (TESSALON) 200 MG capsule Take 1 capsule (200 mg total) by mouth 3 (three) times a day as needed for cough. 05/27/2022 active lisinopril (tablet) 20 mg comp leted lisinopril-hydrochl orothiazide (PRINZIDE,ZESTORETI C) 20-12.5 MG per tablet Take 1 tablet by mouth daily. 2 qd active Problems Problem Status Onset Date Problem Type Date of Resoluti on Source Acute cough active EncounterDiagnosisAct CCT Encounter for screening laboratory testing for COVID-19 virus active EncounterDiagnosisAct CCT Encounters Encounter Type Encounter Reason Primary Diagnosis Location Date Ambulatory [facility] 12/26 Ambulatory [facility] 09/23 Ambulatory [facility] 07/2023 Ambulatory [facility] 08/25 Ambulatory [facility] 07/25 Ambulatory Contact with and (suspected) exposure to covid-19 [facility] 05/27/2022 Care Team Organization Name Specialty Phone Email Start Date End Da te [facility] 2023 [facility] 08/13/2023 [facility] 05/27/2022 05/27[facility] P[facility]No Primary Care 05/27/2022
--- OUTSIDE RECORDS SUMMARY | 2024-12-07 14:57 | XMS_ITS | Clinical Summary ---
Author Organization [facility] Address [address] [place] [id number] Care Team Providers Care Sociology Teacher Name Role Phone Pcp, No Primary Care Provider Unavailabl e Allergies No known active allergies Medications lisinopril-hydr ochlorothiazide (PRINZIDE,ZESTO RETIC) 20-12.5 MG per tablet Take 1 tablet by mouth daily. 2 qd Active benzonatate (TESSALON) 200 MG capsuleIndicati ons:Acute cough Take 1 capsule (200 mg total) by mouth 3 (three) times a day as needed for cough. 30 capsule 05/27/2022 Active Social History Tobacco Use Types Packs/Day Years Used Date Smoking Tobacco: Never Assessed Sex and Gender Information Value Date Recorded Sex Assigned at Not on file Legal Sex Male 3:28 PM EDT Gender Identity Not on file Sexual Orientation Not on file Last Filed Vital Signs Vital Sign Reading Time Taken Comments Blood Pressure 182/121 05/27/2022 10:52 AM EST Pulse 83 05/27/2022 10:52 AM EST Temperature 36.1 C (97 F) 05/27/2022 10:52 AM EST Respiratory Rate - [...] Zoster (Shingles) Vaccine (1 of 2) 12/04/2013 COVID-19 Vaccine ( - 2023-2 5 season) 2024 12/20/2020, 09/24/2020 Influenza Vaccine 12/24/2024 RSV Vaccine 60 years and older and Patients (1 - 1-dose 75+ series) 12/04/2038 Hepatitis B Vaccines Aged Out No long er eligible based on patient's age to complete this topic Insurance [facility] HMO/POS Care Teams Sociology Teacher Relationship Specialty Start Date End Date Pcp, No PCP - General General Medicine 05/27/22
[2024-12-07 15:02] LABS: Hemoglobin A1C 201.8605 umol/L; Total Hemoglobin (HGBA1C) 3937.8288 umol/L
[2024-12-07 15:16] LABS: Alanine Aminotransferase 69 U/L (0-40); Albumin Level 4.0 g/dL (3.5-5.0); Alkaline Phosphatase 62 U/L (39-117); Anion Gap 11 (12-20); Aspartate Amino Transferase 43 U/L (5-37); Blood Urea Nitrogen 16 mg/dL (9-16); Calcium 9.1 mg/dL (8.4-10.2); Carbon Dioxide 27 mmol/L (22-29); Chloride 103 mmol/L (96-108); Cholesterol 183 mg/dL (<200); Estimated Glomerular Filt Rate > 60; HDL Cholesterol 34 mg/dL (>40); Potassium 4.2 mmol/L (3.3-5.1); Sodium 137 mmol/L (135-145); Total Protein 7.2 g/dL (6.5-8.0); Triglycerides 149 mg/dL (<150)
== END 2024-12-07 13:35 | disposition home or self-care (01) ==
LOC: HO.LAB 13:34
PROVIDERS: PCP Physician Assistant; Visit Provider Physician Assistant
DX: E11.65 Type 2 diabetes mellitus with hyperglycemia (principal); E78.2 Mixed hyperlipidemia
CPT/HCPCS: 36415; 80053; 80061; 83036; 85027

== ENCOUNTER 2024-12-08 12:13 | Outpatient (AMB) | payer OTHER, SELFPAY ==
[2024-12-08 12:17] VITALS: BP 116/72; PULSE 83; O2SAT 96; BMI 33.1
--- NOTE | 2024-12-08 12:17 | A.OFFPC_ITS ---
Vital Signs 12/08/24 12:17 Height 6 ft 2 in Weight 258 lb BMI 33.1 BP 116/72 Blood Pressure Location Lt brachial Position Sitting Pulse 83 Pulse Source Pulse Oximeter Pulse Oximetry (%) 96 Oxygen Delivery Method Room Air Intake Visit Reasons: 3 mo follow up f/u DMII/ HTN Intake Note: Patient here for a 3 month follow up DM, HTN Criminal Justice Instructor Required: No Accompanied by: Self / Same As Patient Allergies Seasonal Allergies Allergy (Mild, Verified 12/08/24 12:20) Itchy Eyes Medication List - Last Reconciled 12/08/24 by Padmaja Plummer MD amlodipine 5 mg PO DAILY 30 days cyclobenzaprine 5 mg PO BEDTIME PRN 15 days diclofenac sodium 1% (Arthritis Pain (diclofenac)) 2 grams topical QID PRN 30 days hydrochlorothiazide 12.5 mg PO DAILY lisinopril 40 mg PO DAILY 30 days naproxen 500 mg PO BID PRN 30 days tadalafil 20 mg PO DAILY PRN 30 days triamcinolone acetonide 0.1% 1 appl topical BID 30 days Tobacco use date assessed: 07/16/24 Dental Screening Dental Screen Date: 07/16/24 [facility] Medical History (Updated 12/08/24 @ 12:49 by Padmaja Plummer MD) Elevated fasting glucose DMII (diabetes mellitus, type 2) Sleep apnea No pertinent past medical history Surgical History Lump on neck H/O right wrist surgery Family History Father CAD (coronary artery disease) Mother DMII (diabetes mellitus, type 2) Social History (Updated 12/08/24 @ 12:36 by Padmaja Plummer MD) Housing: House Alcohol intake: current Alcohol intake frequency: holidays/special occasions only Alcohol type: wine Comment: beer once a 3 month 3 beers Patient Tobacco Use Status: Never used Tobacco e-Cigarette/Vaping Use: Never Used Second Hand Smoke Exposure: No service: No Current occupational status: employed 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/hazards: 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) Cognitive needs: No Hearing needs: No Vision needs: No Questionnaire Thrive Questionnaire Date Thrive assessed: 08/24/24 I am a: Patient What is your living situation today?: I choose not to answer this question Within the past 12 months, did the food you bought not last and you didn't have the money to get more?: I choose not to answer this question Within the past 12 months, did you worry whether your food would run out before you got money to buy more?: I choose not to answer this question Do you have trouble paying for medicines?: I choose not to answer this question Do you have trouble getting transportation to medical appointments?: I choose not to answer this question Do you have trouble paying your heating and electricity bill?: I choose not to answer this question Do you have trouble taking care of your child, family member or friend?: I choose not to answer this question Do you have trouble with day-to-day activities such as bathing, preparing meals, shopping, managing finances, etc.?: I choose not to answer this question Are you currently unemployed and looking for a job?: I choose not to answer this question Are you interested in more education?: I choose not to answer this question Please select the resources that you would like help with: None Currently or been in a relationship where the following occur: I choose not to answer THRIVE Score: 0 STEPHEN-7 AMB Questionnaire STEPHEN-7 Date STEPHEN - 7 assessed: 08/24/24 Source: Developed by Drs. Christian Crawford, Stormy Ricci, Amaury Sanchez and colleagues, with an educational jennifer from [employer]. Physical exam (Primary Care) Vital Signs: Last Vital Signs Pulse 83 12/08/24 12:17 BP 116/72 12/08/24 12:17 Pulse Ox 96 12/08/24 12:17 Oxygen Delivery Method Room Air 12/08/24 12:17 BMI result Body Mass Index 33.1 Tobacco/Smoking Status: Tobacco use Status Tobacco use date assessed 07/16/24 12/08/24 12:20 Patient Tobacco Use Status Never used Tobacco 12/08/24 12:36 e-Cigarette/Vaping Use Never Used 12/08/24 12:36 Thrive Assessment: Date of Thrive Assessment Date Thrive assessed 08/24/24 12/08/24 12:20 Currently or been in a relationship where the following occur: I choose not to answer Const General: alert; No acute distress Eyes Conjunctivae: conjunctivae normal Resp Auscultation: clear to auscultation bilaterally Cardio Rate: regular rate Rhythm: regular rhythm GI Inspection: Yes normal to inspection Extrem General: Yes normal to inspection and No edema Coding Level of Care Code Est Pt Level 4 (09781) Complex EM visit Add On G2211 Diagnoses Type 2 diabetes mellitus with hyperglycemia E11.65 Class 1 obesity due to excess calories without serious comorbidity with body mass index (BMI) of 32.0 to 32.9 in adult E66.09; Z68.32 Body mass index: BMI 32.0-32.9 Obesity classification: adult class 1 (BMI 30 - 34.9) Obesity type: due to excess calories Serious obesity comorbidity presence: without serious comorbidity Essential hypertension I10 Mixed hyperlipidemia E78.2 Hyperlipidemia type: mixed hyperlipidemia Sleep apnea G47.30 LFT elevation R79.89 Assessment & Plan Assessment & Plan (1) Type 2 diabetes mellitus with hyperglycemia: Comment: Dr. Preciado Code(s): E11.65 - Type 2 diabetes mellitus with hyperglycemia Category: Medical Plan: Decrease the amount of carbohydrate intake, pasta, bread, rice and potatoes are all sugar and that is aside from all the sweet stuff, remember that fruits are good but they are Sweet also. Hemoglobin A1c goal of less than 6.5. Patient is diet controlled. (2) Obese: Code(s): E66.9 - Obesity, unspecified Category: Medical Qualifiers: Body mass index: BMI 32.0-32.9 Obesity classification: adult class 1 (BMI 30 - 34.9) Obesity type: due to excess calories Serious obesity comorbidity presence: without serious comorbidity Qualified Code(s): E66.09 - Other obesity due to excess calories; Z68.32 - Body mass index [BMI] 32.0-32.9, adult Plan: Diet and exercise (3) Essential hypertension: Code(s): I10 - Essential (primary) hypertension Category: Medical Plan: Continue with blood pressure medication. Decrease salt intake and exercise presently on lisinopril 40 mg once a day and amlodipine 5 mg once a day, modification and placed hydrochlorothiazide in the afternoon (4) HLD (hyperlipidemia): Code(s): E78.5 - Hyperlipidemia, unspecified Category: Medical Qualifiers: Hyperlipidemia type: mixed hyperlipidemia Qualified Code(s): E78.2 - Mixed hyperlipidemia Plan: Avoid fried foods, chicken skin, eggs, butter margarine, pastries and meat. Be it pork or beef they have a lot of cholesterol LDL goal of less than 100 and triglyceride of less than 150 (5) Sleep apnea: Comment: uses cpap machine Code(s): G47.30 - Sleep apnea, unspecified Category: Medical Plan: Continue to use the CPAP more than 4 hours a night and benefits from this. (6) LFT elevation: Code(s): R79.89 - Other specified abnormal findings of blood chemistry Category: Medical Plan: Ultrasound of the abdomen requested Plan History of Present Illness The patient is a 59-year-old male presenting for a comprehensive health evaluation and management of chronic conditions. The patient has a history of obesity, hypertension, psoriasis, diabetes mellitus, and hypercholesterolemia. He reports being diagnosed with diabetes mellitus, with a hemoglobin A1c of 6.8, indicating poor glycemic control. The patient is currently managing his diabetes through diet and exercise, with a goal to reduce his hemoglobin A1c to below 6.5. The patient has a history of hypertension, currently managed with lisinopril 40 mg and amlodipine 5 mg daily. He reports issues with blood pressure control, previously using lisinopril hydrochlorothiazide, which he found effective in managing his blood pressure. His current blood pressure reading is 112/70 mmHg, indicating potential over-treatment. The patient has been diagnosed with hypercholesterolemia, with an LDL cholestero l level of 120 mg/dL, which is above the recommended level for patients with diabetes. He is advised to maintain an LDL level below 100 mg/dL. The patient reports a history of psoriasis for approximately 35 years, managed with topical steroid creams. He has tried systemic treatments like Otezla but experienced adverse effects. The patient has sleep apnea and uses a CPAP machine regularly, which he finds essential for his sleep quality. The patient has elevated liver enzymes, with a suspicion of fatty liver disease. An ultrasound of the liver and hepatitis profile are planned for further pj luation. The patient underwent a colon cancer screening with a stool test (Cologuard) earlier this year, which was negative. 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, which impacts his ability to exercise regularly - Alcohol use: Consumes alcohol infrequently, approximately once every three months - Smoking and recreational drug use: Denies use - Diet: Reports recent increase in pasta and bread consumption, previously maintained a diet rich in vegetables and lean meats - Exercise: Limited due to work schedule, but plans to join a gym for regular exercise Review of Systems - Cardiovascular: Denies chest pain, reports controlled hypertension with current medication regimen - Respiratory: Reports regular use of CPAP machine for sleep apnea - Gastrointestinal: Reports no abdominal pain, denies nausea or vomiting - Musculoskeletal: Reports leg swelling, possibly related to medication or prolonged sitting - Dermatological: Reports psoriasis, managed with topical treatments Physical Exam - Cardiovascular: Blood pressure measured at 112/70 mmHg, indicating potential over-treatment Results - Labs: Hemoglobin A1c at 6.8, indicating diabetes mellitus - Labs: LDL cholesterol at 120 mg/dL, above target for diabetic patients - Labs: Elevated liver enzymes, AST 69 and ALT 43, suggesting fatty liver disease - Tests: Colon cancer screening with stool test (Cologuard) negative Plan The patient will continue with lifestyle modifications to manage diabetes mellitus, focusing on dietary changes to reduce carbohydrate intake and increase physical activity. A follow-up hemoglobin A1c test is scheduled in three months to assess glycemic control. For hypertension, the patient will maintain lisinopril 40 mg in the morning and discontinue the evening dose, replacing it with hydrochlorothiazide to manage blood pressure without over-treatment. Blood pressure will be monitored regularly to ensure optimal control. The patient is advised to continue dietary modifications to manage hypercholesterolemia, aiming for an LDL cholesterol level below 100 mg/dL. Further lipid panel testing will be conducted in three months to evaluate progress. An ultrasound of the liver and hepatitis profile will be conducted to investigate elevated liver enzymes and assess for fatty liver disease. The patient is advised to avoid alcohol and maintain a healthy diet to support liver health. The patient will continue using the CPAP machine for sleep apnea and is encouraged to maintain regular follow-ups with a sleep specialist. Preventative care measures include ensuring vaccinations are up to date, with a recent shingles vaccine administered and a second dose pending. The patient is reminded to have regular eye examinations due to diabetes and to monitor for any changes in vision. Patient was informed and verbally consented to the use of an ambient scribe for clinic note documentation during this visit. Discussion Notes I discussed with the patient the importance of managing diabetes through lifestyle modifications, emphasizing dietary changes and increased physical activity. We reviewed the current blood pressure management plan, deciding to adjust the medication regimen to prevent over-treatment. I explained the need for regular monitoring of cholesterol levels and liver function, with follow-up tests scheduled in three months. The patient was informed about the significance of using the CPAP machine for sleep apnea and maintaining regular eye examinations due to diabetes. We also discussed the recent shingles vaccination and the importance of completing the series. Patient Instructions - Follow a low-carbohydrate diet and increase physical activity to manage diabetes. - Monitor blood pressure regularly and take lisinopril 40 mg in the morning and hydrochlorothiazide in the evening. - Continue dietary changes to lower LDL cholesterol and avoid alcohol to support liver health. - Use CPAP machine consistently for sleep apnea. - Schedule follow-up tests for hemoglobin A1c, cholesterol, and liver function in three months. - Complete the shingles vaccine series and ensure all vaccinations are up to date. - Have regular eye examinations to monitor for diabetes-related changes. Orders: Orders Comprehensive Met. Panel 3 Months E11.65 - Type 2 diabetes mellitus with hyperglycemia Creatinine Urine 3 Months E11.65 - Type 2 diabetes mellitus with hyperglycemia Lipid Panel 3 Months E11.65 - Type 2 diabetes mellitus with hyperglycemia, E78.00 - Pure hypercholesterolemia, unspecified Free T4 (Free Thyroxine) 3 Months E11.65 - Type 2 diabetes mellitus with hyperglycemia Hemoglobin A1c 3 Months E11.65 - Type 2 diabetes mellitus with hyperglycemia Microalbumin, Random (w Creat) 3 Months E11.65 - Type 2 diabetes mellitus with hyperglycemia Thyroid Stimulating Hormone 3 Months E11.65 - Type 2 diabetes mellitus with hyperglycemia Hepatitis B,C Profile 3 Months R79.89 - Other specified abnormal findings of blood chemistry US abdomen complete Today R79.89 - Other specified abnormal findings of blood chemistry Medications: New hydrochlorothiazide 12.5 mg PO DAILY 30 tabs 3RF I10 - Essential (primary) hypertension hydrochlorothiazide 12.5 mg PO DAILY 30 tabs 3RF I10 - Essential (primary) hypertension Changed From lisinopril 40 mg PO DAILY 30 days 30 tabs 3RF I10 - Essential (primary) hypertension To lisinopril 40 mg PO DAILY 90 tabs 3RF 90 days I10 - Essential (primary) hypertension Discontinued lisinopril-hydrochlorothiazide 20-12.5 mg Discontinued Reason: Doctor's Order 1 tab PO BID 30 days 60 tabs 4RF
--- OUTSIDE RECORDS SUMMARY | 2024-12-08 13:14 | XMS_ITS | Clinical Summary ---
Author Organization [facility] Address [address] [place] [id number] Care Team Providers Care Machinist Supervisor Name Role Phone Pcp, No Primary Care [...] patient's age to complete this topic Insurance [facility] HMO/POS Care Teams Machinist Supervisor Relationship Specialty Start Date End Date Pcp, No PCP - General General Medicine 05/27/22
== END 2024-12-08 12:55 | disposition home or self-care (01) ==
LOC: HO.HMCH 12:14
PROVIDERS: PCP Physician Assistant; Visit Provider Internal Medicine
DX: E11.65 Type 2 diabetes mellitus with hyperglycemia (principal); E66.09 Other obesity due to excess calories; Z68.32 Body mass index [BMI] 32.0-32.9, adult; I10 Essential (primary) hypertension; E78.2 Mixed hyperlipidemia; G47.30 Sleep apnea, unspecified; R79.89 Other specified abnormal findings of blood chemistry

== ENCOUNTER 2025-02-08 08:54 | Outpatient (REF) | payer OTHER, SELFPAY ==
--- NOTE | ~2025-02-08 | US_ITS ---
CLINICAL HISTORY: R79.89 - Other specified abnormal findings of blood chemistry US abdomen complete Comparison: None Provided Findings: Gallbladder unremarkable, no stone formation or wall thickening. Common duct measures 3.2 mm. No sonographic Cui sign. Fatty infiltration of the liver without focal abnormality. Main portal vein patent with normal direction of flow. Pancreas is unremarkable. Aorta and IVC patent and normal in caliber. The right kidney is normal, 11.2 cm in length. No focal abnormality or hydronephrosis. The left kidney is normal, 11.3 cm in length. No focal abnormality or hydronephrosis. 2.8 x 3.7 cm midpole cyst. The spleen is normal, 9.1 cm in length. No focal abnormality. Impression: Fatty infiltration of the liver Otherwise unremarkable This document has been electronically signed by: Bora Gilmore MD on 02/08/2025 20:09:15
--- OUTSIDE RECORDS SUMMARY | 2025-02-08 10:56 | XMS_ITS | Clinical Summary ---
Author Organization [facility] Address [address] [place] [id number] Care Team Providers Care Juvenile Justice Officer Name Role Phone Pcp, No Primary Care [...] Vaccine (1 of 2) 12/04/2013 Influenza Vaccine 12/24/2024 COVID-19 Vaccine (3 - 5-2 6 season) 2025 12/20/2020, 09/24/2020 RSV Vaccine 60 years and older and Patients (1 - 1-dose 75+ series) 12/04/2038 Hepatitis B Vaccines Aged Out No long er eligible based on patient's age to complete this topic Insurance [facility] HMO/POS Care Teams Juvenile Justice Officer Relationship Specialty Start Date End Date Pcp, No PCP - General General Medicine 05/27/22
== END 2025-02-08 08:55 | disposition home or self-care (01) ==
LOC: HO.US 08:54
PROVIDERS: PCP Physician Assistant; Visit Provider Internal Medicine
DX: R79.89 Other specified abnormal findings of blood chemistry (principal)
CPT/HCPCS: 76700

== ENCOUNTER → 2025-02-08 08:56 | Outpatient (BNV) | payer OTHER, SELFPAY | PROVIDERS: PCP Physician Assistant; Visit Provider Radiology Diagnostic Radiology | DX: K76.0 Fatty (change of) liver, not elsewhere classified (principal) | CPT/HCPCS: 76700 ==

== ENCOUNTER 2025-03-08 13:46 | Outpatient (REF) | payer OTHER, SELFPAY ==
[2025-03-08 15:31] LABS: Alanine Aminotransferase 24 U/L (0-40); Albumin Level 4.1 g/dL (3.5-5.0); Anion Gap 11 (12-20); Aspartate Amino Transferase 25 U/L (5-37); Blood Urea Nitrogen 15 mg/dL (9-16); Calcium 9.3 mg/dL (8.4-10.2); Carbon Dioxide 26 mmol/L (22-29); Chloride 106 mmol/L (96-108); Cholesterol 176 mg/dL (<200); Estimated Glomerular Filt Rate > 60; HDL Cholesterol 40 mg/dL (>40); Potassium 4.5 mmol/L (3.3-5.1); Sodium 138 mmol/L (135-145); Total Protein 7.3 g/dL (6.5-8.0); Triglycerides 63 mg/dL (<150)
[2025-03-08 15:44] LABS: Free T4 (Free Thyroxine) 0.88 ng/dL (0.71-1.85); Thyroid Stimulating Hormone 0.76 uIU/mL (0.32-4.0)
[2025-03-08 16:38] LABS: Alkaline Phosphatase 56 U/L (39-117)
--- OUTSIDE RECORDS SUMMARY | 2025-03-08 16:43 | XMS_ITS | Clinical Summary ---
Author Organization [facility] Address [address] [place] [id number] Care Team Providers Care Tree Deadener Name Role Phone Pcp, No Primary Care [...] patient's age to complete this topic Insurance [facility] HMO/POS Care Teams Tree Deadener Relationship Specialty Start Date End Date Pcp, No PCP - General General Medicine 05/27/22
[2025-03-09 04:12] LABS: HBS Num1 0.50 mIU/mL (0-7.99); HBc Num1 0.05 S/CO (0.00-0.79); HBsAGNum1 0.48 S/CO (0.00-0.99); Hepatitis B Surface Antigen Negative (Negative); ~HepC Num1 0.11 S/CO (0.00-0.79); ~Hepatitis B Surface Antibody NONREACTIVE (Nonreactive); ~Hepatitis C Antibody Nonreactive (Nonreactive)
== END 2025-03-08 13:47 | disposition home or self-care (01) ==
LOC: HO.LAB 13:46
PROVIDERS: PCP Physician Assistant; Visit Provider Internal Medicine
DX: E11.65 Type 2 diabetes mellitus with hyperglycemia (principal); E78.00 Pure hypercholesterolemia, unspecified; R79.89 Other specified abnormal findings of blood chemistry
CPT/HCPCS: 36415; 80053; 80061; 82043; 82570; 83036; 84439; 84443; 86704; 86706; 86803; 87340

== ENCOUNTER 2025-03-10 11:17 | Outpatient (AMB) | payer OTHER, SELFPAY ==
[2025-03-10 11:37] VITALS: BP 130/88; PULSE 73; TEMP 36.3; O2SAT 96; BMI 31.5
--- NOTE | 2025-03-10 11:37 | A.OFFPC_ITS ---
Vital Signs 03/10/25 11:37 Height 6 ft 2 in Weight 245 lb 2 oz BMI 31.5 BP 130/88 Blood Pressure Location Lt brachial Position Sitting Pulse 73 Pulse Source Pulse Oximeter Temp 97.3 F Temp Source Temporal Artery Scan Pulse Oximetry (%) 96 Oxygen Delivery Method Room Air Intake Visit Reasons: 3mth f/u Proof Operator Required: No Accompanied by: Self / Same As Patient Allergies Seasonal Allergies Allergy (Mild, Verified 03/10/25 12:00) Itchy Eyes amlodipine Adverse Reaction (Intermediate, Verified 03/10/25 12:03) swelling Medication List - Last Reconciled 03/10/25 by Nba Moe PA-C cyclobenzaprine 5 mg PO BEDTIME PRN 15 days diclofenac sodium 1% (Arthritis Pain (diclofenac)) 2 grams topical QID PRN 30 days hydrochlorothiazide 12.5 mg PO DAILY lisinopril 40 mg PO DAILY 90 days naproxen 500 mg PO BID PRN 30 days tadalafil 20 mg PO DAILY PRN 30 days triamcinolone acetonide 0.1% 1 appl topical BID 30 days Tobacco use date assessed: 03/10/25 Dental Screening Dental Screen Date: 03/10/25 Did you have a dental visit in the last 12 months?: No Did you have a dental problem in the last 6 months where you did not have access to dental care?: No Was dental information given to patient?: Patient has dentist HPI 3mth f/u HPI Details Patient is a 59-year-old male here today for follow-up visit Patient has a past medical history significant for hypertension, vitamin-D deficiency and occasional lower lumbar spine pain. 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 Concern--> reports he has started amlodipine for blood pressure though had side effects to swelling. He has discontinue this medication .. Type 2 diabetes: Patient's most recent A1c is 6.3 from 6.8. Has been making dietary major dietary modifications and has been able to reduce his sugar quite significantly. PLAN: Continue to work on lifestyle and dietary modifications. .. Class 1 obesity: Has noted weight loss since last office visit He admits to dietary indiscretion over the winter and due to personal issues in his life. He will try to work on dietary and lifestyle modifications to help reduce his weight again. .. Hypertension: Blood pressure acceptable today in office. He does monitor his blood pressure quite closely at home and reports 120s to 130 systolic.. Again had tried amlodipine though had side effect of lower extremity swelling PLAN: Again will work on lifestyle and dietary modifications to reduce his blood pressure .. HLD: Most recent lipid panel showing borderline total cholesterol and LDL 140. Did discuss starting statin therapy though would like to hold off and work on lifestyle and dietary modifications. Again goal LDL to be below 100 Laboratory Tests 12/07/24 03/08/25 13:48 14:02 RBC 5.04 Creatinine 0.91 Hemoglobin A1c % 6.8 H 6.3 H AST 25 ALT 24 LDL Cholesterol, C alc 120 H 124 H TSH 0.76 PFSH Medical History Elevated fasting glucose DMII (diabetes mellitus, type 2) Sleep apnea No pertinent past medical history Surgical History Lump on neck H/O right wrist surgery Family History Father CAD (coronary artery disease) Mother DMII (diabetes mellitus, type 2) Social History Housing: House Alcohol intake: current Alcohol intake frequency: holidays/special occasions only Alcohol type: wine Comment: beer once a 3 month 3 regis Patient Tobacco Use Status: Never used Tobacco e-Cigarette/Vaping Use: Never Used Second Hand Smoke Exposure: No service: No Current occupational status: employed 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 1. Little interest or pleasure in doing things: not at all 2. Feeling down, depressed, or hopeless: not at all 3. Trouble falling or staying asleep, or sleeping too much: not at all 4. Feeling tired or having little energy: not at all 5. Poor appetite or overeating: not at all 6. Feeling bad about yourself - or that you are a failure or have let yourself or your family down: not at all 7. Trouble concentrating on things, such as reading the newspaper or watching television: not at all 8. Moving or speaking so slowly that other people could have noticed. Or the opposite - being so fidgety or restless that you have been moving around a lot more than usual: not at all 9. Thoughts that you would be better off or of hurting yourself in some way: not at all Total score: 0 Depression Screening Interpretation: Negative Depression Screening Done: Yes 95542 - PHQ-9 Billing: Yes Source: Developed by Drs. Christian Crawford, Stormy Ricci, Amaury Sanchez and colleagues, with an educational jennifer from [employer]. Thrive Questionnaire Date Thrive assessed: 08/24/24 I am a: Patient What is your living situation today?: I choose not to answer this question Within the past 12 months, did the food you bought not last and you didn't have the money to get more?: I choose not to answer this question Within the past 12 months, did you worry whether your food would run out before you got money to buy more?: I choose not to answer this question Do you have trouble paying for medicines?: I choose not to answer this question Do you have trouble getting transportation to medical appointments?: I choose not to answer this question Do you have trouble paying your heating and electricity bill?: I choose not to answer this question Do you have trouble taking care of your child, family member or friend?: I choose not to answer this question Do you have trouble with day-to-day activities such as bathing, preparing meals, shopping, managing finances, etc.?: I choose not to answer this question Are you currently unemployed and looking for a job?: I choose not to answer this question Are you interested in more education?: I choose not to answer this question Please select the resources that you would like help with: None Currently or been in a relationship where the following occur: I choose not to answer THRIVE Score: 0 AUDIT C Alcohol Use Questionnaire (AUDIT-C) 1. How often do you have a drink containing alcohol?: Never 3. How often do you have six or more drinks on one occasion?: Never Total Score: 0 Score Reviewed/Action Taken: No STEPHEN-7 AMB Questionnaire STEPHEN-7 Date STEPHEN - 7 assessed: 08/24/24 Feeling nervous, anxious, or on edge: 0 = Not at all Not being able to stop or control worryin = Not at all Worrying too much about different things: 0 = Not at all Trouble relaxin = Not at all Being so restless that it is hard to sit still: 0 = Not at all Becoming easily annoyed or irritable: 0 = Not at all Feeling afraid as if something awful might happen: 0 = Not at all Total STEPHEN-7 score (0-4 normal; 5-9 mild; 10-14 moderate; 15-21 severe): 0 Source: Developed by Drs. Christian Crawford, Stormy Ricci, Amaury Sanchez and colleagues, with an educational jennifer from [employer]. Review of Systems Const Denies headache(s) Eyes Denies loss of vision ENT Denies vertigo, Denies dizziness, Denies headache(s) and Denies sore throat Card Denies chest pain, Denies leg edema and Denies lightheadedness Resp Denies cough, Denies hemoptysis and Denies wheezing GI Denies abdominal pain, Denies melena, Denies constipation, Denies diarrhea and Denies vomiting Denies dysuria, Denies urinary frequency and Denies urinary urgency Musc Denies arthralgias, Denies joint swelling, Denies numbness and Denies tingling Neuro Denies Abnormal speech present, Denies behavioral changes, Denies vertigo, Denies dizziness, Denies headache(s), Denies loss of vision, Denies memory loss, Denies numbness and Denies tingling Psych Denies anxiety, Denies behavioral changes, Denies depression, Denies memory loss and Denies panic attacks Amor/Lymph Denies easy bleeding and Denies easy bruising Aller/Immun Denies wheezing Physical exam (Primary Care) Vital Signs: Last Vital Signs Temp 97.3 F 03/10/25 11:37 Pulse 73 03/10/25 11:37 BP 130/88 03/10/25 11:37 Pulse Ox 96 03/10/25 11:37 Oxygen Delivery Method Room Air 03/10/25 11:37 BMI result Body Mass Index 31.5 BMI Assessment/Plan discussion: High BMI High, discussed plan: lifestyle, weight reduction, dietary and physical activity Tobacco/Smoking Status: Tobacco use Status Tobacco use date assessed 03/10/25 03/10/25 11:38 Patient Tobacco Use Status Never used Tobacco 03/10/25 11:38 e-Cigarette/Vaping Use Never Used 03/10/25 11:38 PHQ-9: PHQ-9 Score PHQ-9: Total score 0 03/10/25 13:15 Depression Screening Interpretation: Negative Thrive Assessment: Date of Thrive Assessment Date Thrive assessed 08/24/24 03/10/25 11:38 Currently or been in a relationship where the following occur: I choose not to answer Const General: healthy appearing, no acute distress, alert and awake Nutritional Appearance: well nourished Orientation/consciousness: oriented to person, oriented to place and oriented to time HENMT Ears: TM's normal bilaterally General nose exam: Normal nasal mucous membranes and turbinates present Eyes Conjunctivae: conjunctivae normal Sclerae: sclerae normal Pupils: Equal, round and reactive pupils present Neck Neck: Yes no lymphadenopathy and Yes no JVD Thyroid: Thyroid normal Carotids: no bruits Resp Effort & Inspection: normal respiratory effort and not tachypneic Auscultation: no crackles, no rales, no rhonchi and no wheezes Cardio Rate: regular rate Rhythm: regular rhythm Heart sounds: no murmurs and normal S1 and S2 GI Palpation (GI): Soft to palpation, nontender, no hepatomegaly and no splenomegaly Auscultation: normal bowel sounds Skin General skin exam: no rashes or lesions noted and dry skin Neuro General: oriented to person, oriented to place and oriented to time Cranial nerves: Yes Equal, round and reactive pupils present Speech: No Abnormal speech present Gait exam (Neuro): Normal gait present Motor exam (neuro): no tremor noted Extrem Right upper extremity: full ROM Left upper extremity: full ROM Right lower extremity: full ROM; no edema Left lower extremity: full ROM; no edema Psych Mental Status: mental status grossly normal Speech and movement: Normal speech and movement present Affect: normal affect Attitude: cooperative Thought process: Normal thought process present Office Procedures Flu Questionnaire Does the patient have a severe egg allergy?: No Does the patient have severe life threatening allergies?: No Does the patient have a fever or illness today?: No Has the patient ever had Guillain-Redding Syndrome?: No Has the patient ever had any past reaction to a flu shot?: No Immunizations Fluarix [id number] (PF) 45 mcg (15 mcg x 3)/0.5 mL IM syringe Performing Provider: Nba Moe PA-C Performing Location: [facility] Administered by: Deena Murphy CMA on 03/10/25 12:16 Dose Route Admin Location Dispensed Lot Number Expiration Date NDC Health Manager 0.5 mL IM Left Deltoid 0.5 mL [id number] 11/22/25 [id number] [employer] VIS Given Date VIS Provided VIS Publication Date 03/10/25 Single Vaccine 24 Eligibility Eligibility Date Funding Source Not [facility] Eligible 03/10/25 Private Coding Level of Care Code Est Pt Level 4 (62751) Diagnoses Type 2 diabetes mellitus with hyperglycemia, without long-term current use of insulin E11.65 Diabetes mellitus adapted physical education specialist insulin use: without adapted physical education specialist use Essential hypertension I10 Mixed hyperlipidemia E78.2 Hyperlipidemia type: mixed hyperlipidemia LFT elevation R79.89 Additional Codes PHQ-9 - 15987 - PHQ-9 Billing: Yes ([id number]) Assessment & Plan Assessment & Plan (1) Type 2 diabetes mellitus with hyperglycemia: Comment: Dr. Preciado Code(s): E11.65 - Type 2 diabetes mellitus with hyperglycemia Category: Medical Qualifiers: Diabetes mellitus senior living insulin use: without senior living use Qualified Code(s): E11.65 - Type 2 diabetes mellitus with hyperglycemia Plan: Decrease the amount of carbohydrate intake, pasta, bread, rice and potatoes are all sugar and that is aside from all the sweet stuff, remember that fruits are good but they are Sweet also. Hemoglobin A1c goal of less than 6.5. Patient is diet controlled. (2) Essential hypertension: Code(s): I10 - Essential (primary) hypertension Category: Medical Plan: Continue with blood pressure medication. Decrease salt intake and exercise presently on lisinopril 40 mg once a day and hydrochlorothiazide. Goal blood pressure to remain below 140/90 (3) HLD (hyperlipidemia): Code(s): E78.5 - Hyperlipidemia, unspecified Category: Medical Qualifiers: Hyperlipidemia type: mixed hyperlipidemia Qualified Code(s): E78.2 - Mixed hyperlipidemia Plan: Avoid fried foods, chicken skin, eggs, butter margarine, pastries and meat. Be it pork or beef they have a lot of cholesterol LDL goal of less than 100 and triglyceride of less than 150 (4) LFT elevation: Code(s): R79.89 - Other specified abnormal findings of blood chemistry Category: Medical Plan: Recent ultrasound showing positive fatty liver disease. Has been working on lifestyle and dietary modifications. Most recent liver enzymes have improved since making these modifications. Orders: Orders Complete Blood Count no Diff Today E11.65 - Type 2 diabetes mellitus with hyperglycemia Comprehensive [place]. Panel Fast Today E11.65 - Type 2 diabetes mellitus with hyperglycemia Influenza [id number] Immunization Today Z23 - Encounter for immunization Hemoglobin A1c Today E11.65 - Type 2 diabetes mellitus with hyperglycemia Lipid Panel Today E78.2 - Mixed hyperlipidemia Prostate Specific Antigen Scr Today E78.2 - Mixed hyperlipidemia, Z12.5 - Encounter for screening for malignant neoplasm of prostate Microalbumin, Random (w Creat) Today I10 - Essential (primary) hypertension Medications: Changed From hydrochlorothiazide 12.5 mg PO DAILY 30 tabs 3RF I10 - Essential (primary) hypertension To hydrochlorothiazide 12.5 mg PO DAILY 90 tabs 2RF 90 days I10 - Essential (saul dick) hypertension Refilled lisinopril 40 mg PO DAILY 90 tabs 3RF 90 days I10 - Essential (primary) hypertension triamcinolone acetonide 0.1% 1 appl topical BID 80 grams 6RF 30 days L40.9 - Psoriasis, unspecified diclofenac sodium 1% (Arthritis Pain (diclofenac)) apply to single elbow, wrist or hand; for hand includes palm/fingers/back of hand 2 grams topical QID PRN 100 grams 3RF pain (scale score 4-6) 30 days 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
--- OUTSIDE RECORDS SUMMARY | 2025-03-10 14:28 | XMS_ITS | Clinical Summary ---
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
== END 2025-03-10 12:22 | disposition home or self-care (01) ==
LOC: HO.HMCH 11:17
PROVIDERS: PCP Physician Assistant; Visit Provider Physician Assistant
DX: E11.65 Type 2 diabetes mellitus with hyperglycemia (principal); I10 Essential (primary) hypertension; E78.2 Mixed hyperlipidemia; R79.89 Other specified abnormal findings of blood chemistry; Z23 Encounter for immunization

== ENCOUNTER → 2025-03-10 11:17 | Outpatient (BNVA) | payer OTHER, SELFPAY | PROVIDERS: PCP Physician Assistant; Visit Provider Physician Assistant | DX: I10 Essential (primary) hypertension (principal); E55.9 Vitamin D deficiency, unspecified; M54.50 Low back pain, unspecified; E66.811 Obesity, class 1; E11.65 Type 2 diabetes mellitus with hyperglycemia; E78.2 Mixed hyperlipidemia; R79.89 Other specified abnormal findings of blood chemistry; L40.9 Psoriasis, unspecified; M19.039 Primary osteoarthritis, unspecified wrist; M53.3 Sacrococcygeal disorders, not elsewhere classified; Z23 Encounter for immunization; Z68.31 Body mass index [BMI] 31.0-31.9, adult | CPT/HCPCS: 90471; 90656; 96127 ==